=== PATIENT | male | born 1935 | race Caucasian/White ===

== ENCOUNTER → 2016-08-24 | Outpatient (CLI) | payer MEDICARE, OTHER ==
[~2016-08-24] MED LIST: CELE200C PO; CIAL10TA PO; FISH500C; GABA400C5 PO; LEVO150T7 PO; MULT-135 PO; OMEP20CA2; PERC10TA27 PO; SIMV10TA PO; ULTR50TA5 PO; VITA400C5; XARE20TA PO
== END ==
LOC: PLAB 08:28
PROVIDERS: ATTEND Family Medicine
DX: E55.9 Vitamin D deficiency, unspecified (principal); Z79.899 Other long term (current) drug therapy
CPT/HCPCS: 36415; 82306; 84402; 84403

== ENCOUNTER → 2016-09-23 | Outpatient (CLI) | payer MEDICARE, OTHER | LOC: PLAB 08:08 | PROVIDERS: ATTEND Family Medicine | DX: E55.9 Vitamin D deficiency, unspecified (principal); Z79.899 Other long term (current) drug therapy | CPT/HCPCS: 36415; 82306; 84402; 84403 ==

== ENCOUNTER → 2016-11-29 | Outpatient (CLI) | payer MEDICARE, OTHER ==
[2016-11-29 09:47] LABS: AUTOMATED NEUTROPHIL # 2.4 TH/MM3 (1.8-7.7); BASOPHIL % 0.6 % (0.0-2.0); EOSINOPHIL # 0.1 TH/MM3 (0-0.4); EOSINOPHIL % 1.5 % (0.0-4.0); HEMATOCRIT 39.1 % (39.0-51.0); HEMO FLAGS DIFF FINAL; LYMPH % 39.4 % (9.0-44.0); MEAN CELL VOLUME 97.7 FL (80.0-100.0); MEAN CORPUSCULAR HEMOGLOBIN 33.6 PG (27.0-34.0); MEAN CORPUSCULAR HGB CONC 34.4 % (32.0-36.0); MONO % 12.9 % (0.0-8.0); NEUT % 45.6 % (16.0-70.0); PLATELET COUNT 171 TH/MM3 (150-450); RED BLOOD COUNT 4.01 MIL/MM3 (4.50-5.90); RED CELL DISTRIBUTION WIDTH 14.7 % (11.6-17.2); WHITE BLOOD COUNT 5.2 TH/MM3 (4.0-11.0)
[2016-11-29 10:24] LABS: ALKALINE PHOSPHATASE 65 U/L (45-117); ALT (GPT) 21 U/L (12-78); ANION GAP 8 MEQ/L (5-15); AST (GOT) 16 U/L (15-37); BICARBONATE 27.7 MEQ/L (21.0-32.0); BLOOD UREA NITROGEN 30 MG/DL (7-18); CHLORIDE 106 MEQ/L (98-107); GLOMERULAR FILTRATION RATE 70 ML/MIN (>89); GLUCOSE,FASTING 101 MG/DL (74-99); SODIUM (NA) 142 MEQ/L (136-145); THYROXINE (T4) 4.8 MCG/DL (4.5-12.1); TOTAL BILIRUBIN ADULT 0.3 MG/DL (0.2-1.0)
== END ==
LOC: PLAB 07:51
PROVIDERS: ATTEND Family Medicine
DX: E55.9 Vitamin D deficiency, unspecified (principal); Z79.899 Other long term (current) drug therapy
CPT/HCPCS: 36415; 80053; 82306; 84402; 84403; 84436; 84443; 84480; 85025

== ENCOUNTER 2017-02-10 10:00 | Inpatient (IN) | payer MEDICARE, OTHER ==
[2017-02-10] VITALS (14 sets, daily range): BP systolic 89–123; BP diastolic 52–58; PULSE 47–65; RESP 16–34; TEMP 97.8–98.8; O2SAT 94–99
[~2017-02-10] VITALS: Ht 185.4 cm; Wt 118.0 kg
--- NOTE | 2017-02-10 10:12 | PD ---
HPI Chief Complaint: Syncope, R Hip Pain, Fall Time Seen by Provider: 10:08 Travel History International Travel<30 days: No Contact w/Intl Traveler<30days: No History of Present Illness HPI Patient is 77 years old. He arrives by EMS. The patient had a fall today. He fell backwards onto his right hip. He is a constant pain in that area. He is unable to flex the hip. The pain is worse with palpation. EMS notes that on scene his heart rate was between 35 and 55. Slow A. fib was observed on 12- lead EKG. Initial blood pressure was low approximately 80/50 and after 2 L normal saline increased 106/80. PFSH Past Medical History Arthritis: Yes Asthma: No Autoimmune Disease: No Blood Disorders: No Anxiety: No Depression: No Heart Rhythm Problems: Yes (ARRYTHMIA X1) Cancer: No Cardiovascular Problems: Yes (CARDIAC ARRTHYMIA, ENLARGED HEART, A-FIB) High Cholesterol: Yes Chemotherapy: No Chest Pain: Yes Congestive Heart Failure: Yes (ENLARGED HEART) COPD: No Cerebrovascular Accident: No Diabetes: No Diminished Hearing: No Endocrine: Yes (DRY) Gastrointestinal Disorders: Yes (GERD) GERD: No Glaucoma: No Genitourinary: No Headaches: Yes Hepatitis: No Hiatal Hernia: No Hypertension: No Immune Disorder: No Musculoskeletal: Yes (ARTHRITIS, HNP, FRANCHESCA KNEE AND SHOULDER REPLACEMENTS, L HIP REPLACEMENT) Neurologic: Yes Psychiatric: No Reproductive: Yes Respiratory: Yes (SLEEP APNEA/CPAP) Myocardial Infarction: No Radiation Therapy: No Seizures: No Sickle Cell Disease: No Sleep Apnea: Yes Thyroid Disease: Yes (HYPO) Ulcer: No Past Surgical History Abdominal Surgery: Yes (UMBILICAL HERNIA REPAIR 85) AICD: No Arteriovenous Shunt: No Cardiac Surgery: Yes (CARDIAC ABLATIONS X 2) Ear Surgery: No Endocrine Surgery: No Eye Surgery: No Genitourinary Surgery: No Gynecologic Surgery: No Insulin Pump: No Joint Replacement: Yes (FRAN[place] KNEES AND L HIP, FRANCHESCA SHOULDERS) Oral Surgery: No Pacemaker: No Thoracic Surgery: No Other Surgery: Yes Social History Alcohol Use: Yes (RUM 3X A WEEK) Tobacco Use: No Substance Use: No Allergies-Medications (Allergen,Severity, Reaction): Uncoded Allergies: PHENDIMETRAZINE (Allergy, Severe, ATRIAL FIBRILLATION, 02/24/16) Reported Meds & Prescriptions Reported Meds & Active Scripts Active Reported Percocet (Oxycodone-Acetaminophen) 10-325 mg Tab 1 Tab PO Q4H PRN Fish Oil ([place]-3 Fatty Acids) Unknown Strength Cap Unknown Dose Xarelto (Rivaroxaban) 20 Mg Tab 20 Mg PO DAILY Celebrex (Celecoxib) 200 Mg Cap 200 Mg PO BID Cialis (Tadalafil) 10 Mg Tab 10 Mg PO DAILY PRN Do not exceed 1 dose/day. Gabapentin 400 Mg Cap 400 Cap PO HS Levothyroxine (Levothyroxine Sodium) 150 Mcg Tab 150 Mcg PO DAILY Multi Vitamin (Multiple Vitamin) 1 Tab Tab 1 Tab PO DAILY Omeprazole 20 Mg Cap Simvastatin 10 Mg Tab 10 Mg PO DAILY Ultram (Tramadol HCl) 50 Mg Tab 50 Mg PO Q4H PRN E-400 (Vitamin E) 400 Unit Cap Review of Systems Except as stated in HPI: all other systems reviewed are Neg Physical Exam Narrative GENERAL: 81-year-old male, moderate distress secondary to weakness in her pain RECTAL: No mass. Guaiac negative mucous. SKIN: Warm and dry. HEAD: Atraumatic. Normocephalic. EYES: Pupils equal and round. No scleral icterus. No injection or drainage. ENT: No nasal bleeding or discharge. Mucous membranes pink and moist. NECK: Trachea midline. No JVD. CARDIOVASCULAR: Heart rate is irregular and approximately 50-60 bpm. RESPIRATORY: No accessory muscle use. Clear to auscultation. Breath sounds equal bilaterally. GASTROINTESTINAL: Abdomen soft, non-tender, nondistended. Hepatic and splenic margins not palpable. MUSCULOSKELETAL: There is pain with axial load about the right lower extremity. The patient cannot lift the right lower extremity off the bed. He can lift the left lower extremity off the bed. NEUROLOGICAL: Awake and alert. No obvious cranial nerve deficits. Motor grossly within normal limits. Five out of 5 muscle strength in the arms and legs. Normal speech. PSYCHIATRIC: Appropriate mood and affect; insight and judgment normal. Data Data Last Documented VS Vital Signs Date Time Temp Pulse Resp B/P Pulse Ox O2 Delivery O2 Flow Rate FiO2 02/10/17 12:03 58 18 107/58 97 Nasal Cannula 2 02/10/17 10:03 98.2 VS reviewed Orders Electrocardiogram (02/10/17 10:09) Basic Metabolic Panel (Bmp) (02/10/17 10:09) Complete Blood Count With Diff (02/10/17 10:09) Magnesium (Mg) (02/10/17 10:09) Ckmb (Isoenzyme) Profile (02/10/17 10:09) Troponin I (02/10/17 10:09) Act Partial Throm Time (Ptt) (02/10/17 10:09) Prothrombin Time / Inr (Pt) (02/10/17 10:09) Chest, Single Ap (02/10/17 10:09) Blood Glucose (02/10/17 10:09) Ecg Monitoring (02/10/17 10:09) Iv Access Insert/Monitor (02/10/17 10:09) Oximetry (02/10/17 10:09) Sodium Chloride 0.9% Flush (Ns Flush) (02/10/17 10:15) Orthostatic Vital Signs (02/10/17 10:09) Femur (Ap & Lat/2vws) (02/10/17 10:12) Hip, Uni(Ap&Lat) W Ap Pelvis (02/10/17 10:12) Blood Glucose (02/10/17 10:20) ^ Infusion (02/10/17 ) Dopamine Inj Premix (Dopamine Inj Premix (02/10/17 11:00) Terbutaline Inj (Brethine Inj) (02/10/17 10:45) Calcium Gluconate Inj (Calcium Gluconate (02/10/17 10:45) CKMB (02/10/17 10:15) CKMB% (02/10/17 10:15) Type And Screen (02/10/17 11:14) Blood Product Administration .UPON TRANSFUSION (02/10/17 11:14) Sodium Chlor 0.9% 250 Ml Inj (Ns 250 Ml (02/10/17 11:15) B-Type Natriuretic Peptide (02/10/17 11:58) Admit Order (Ed Use Only) (02/10/17 12:17) Labs Laboratory Tests Test 02/10/17 02/10/17 10:15 11:45 White Blood Count 8.2 TH/MM3 Red Blood Count 3.14 MIL/MM3 Hemoglobin 10.5 GM/DL Hematocrit 31.4 % Mean Corpuscular Volume 99.9 FL Mean Corpuscular Hemoglobin 33.5 PG Mean Corpuscular Hemoglobin 33.6 % Concent Red Cell Distribution Width 15.1 % Platelet Count 146 TH/MM3 Mean Platelet Volume 9.2 FL Neutrophils (%) (Auto) 70.6 % Lymphocytes (%) (Auto) 20.7 % Monocytes (%) (Auto) 7.7 % Eosinophils (%) (Auto) 0.6 % Basophils (%) (Auto) 0.4 % Neutrophils # (Auto) 5.8 TH/MM3 Lymphocytes # (Auto) 1.7 TH/MM3 Monocytes # (Auto) 0.6 TH/MM3 Eosinophils # (Auto) 0.0 TH/MM3 Basophils # (Auto) 0.0 TH/MM3 CBC Comment DIFF FINAL Differential Comment Prothrombin Time 13.0 SEC Prothromb Time International 1.2 RATIO Ratio Activated Partial 30.8 SEC Thromboplast Time Sodium Level 146 MEQ/L Potassium Level 3.9 MEQ/L Chloride Level 114 MEQ/L Carbon Dioxide Level 26.5 MEQ/L Anion Gap 6 MEQ/L Blood Urea Nitrogen 32 MG/DL Creatinine 1.14 MG/DL Estimat Glomerular Filtration 61 ML/MIN Rate Random Glucose 108 MG/DL Calcium Level 7.7 MG/DL Magnesium Level 1.8 MG/DL Total Creatine Kinase 223 U/L Creatine Kinase MB 3.8 NG/ML Troponin I 0.02 NG/ML B-Type Natriuretic Peptide 51 PG/ML Blood Type O POSITIVE Antibody Screen NEGATIVE MDM Medical Decision Making Medical Screen Exam Complete: Yes Emergency Medical Condition: Yes Medical Record Reviewed: Yes Differential Diagnosis Femur fracture, pelvis fracture, anemia, electrolyte imbalance, arrhythmia, myocardial infarction Narrative Course CBC & BMP Diagram 02/10/17 10:15 Tn 0.02 EKG: Atrial fibrillation, 65 beats per minute, stable TWI INR 1.2 The patient had a hypotension and bradycardia. Blood work reveals anemia with a 3 point drop from 10 weeks prior. The patient takes no rate control agent or antihypertensive. His stool guaiac was trace positive. He has been on dopamine sentences ER arrival. Case discussed with Dr Dorado. Critical Care Narrative Aggregate critical care time was 40 minutes. Time to perform other separately billable procedures was not included in the critical care time. My time did not include minutes spent treating any other patients simultaneously or on activities that did not directly contribute to the patient's treatment. The services I provided to this patient were to treat and/or prevent clinically significant deterioration that could result in: Syncope, cardiac arrest, multiorgan failure I provided critical care services requiring my management, as noted below: Chart data review, documentation time, medication orders and management, vital sign assessments/reviewing monitor data, ordering and reviewing lab tests, ordering and interpreting/reviewing x-rays and diagnostic studies, care of the patient and discussion of the patient with the admitting physicians. [facility] Point of Care Internal Pos. & Neg. Controls: Passed Fecal Specimen Occult Blood: Positive Diagnosis Primary Impression: Syncope and collapse Additional Impressions: Fracture of pubic ramus Qualified Code: S32.591A - Fracture of pubic ramus, right, closed, initial encounter Anemia Qualified Code: D64.9 - Anemia, unspecified type Hypotension Qualified Code: I95.9 - Hypotension, unspecified hypotension type Bradycardia Admitting Information Admitting Physician Requests: Admit Thong Coyne MD Feb 10, 2017 10:12
[2017-02-10] MEDS ORDERED: SODIUM CHLORIDE 0.9% FLUSH 10 ML FLUSH IVF PRN ×2 (10:15→18:15)
[2017-02-10 10:36] LABS: AUTOMATED NEUTROPHIL # 5.8 TH/MM3 (1.8-7.7); BASOPHIL % 0.4 % (0.0-2.0); EOSINOPHIL % 0.6 % (0.0-4.0); HEMATOCRIT 31.4 % (39.0-51.0); HEMO FLAGS DIFF FINAL; LYMPH % 20.7 % (9.0-44.0); LYMPHOCYTE # 1.7 TH/MM3 (1.0-4.8); MEAN CELL VOLUME 99.9 FL (80.0-100.0); MEAN CORPUSCULAR HEMOGLOBIN 33.5 PG (27.0-34.0); MEAN CORPUSCULAR HGB CONC 33.6 % (32.0-36.0); MONO % 7.7 % (0.0-8.0); NEUT % 70.6 % (16.0-70.0); PLATELET COUNT 146 TH/MM3 (150-450); RED BLOOD COUNT 3.14 MIL/MM3 (4.50-5.90); RED CELL DISTRIBUTION WIDTH 15.1 % (11.6-17.2); WHITE BLOOD COUNT 8.2 TH/MM3 (4.0-11.0)
[2017-02-10] MEDS ORDERED: TERBUTALINE INJ 1 MG/ML AMP SQ PRN (10:45)
[2017-02-10] MEDS ORDERED: CALCIUM GLUCONATE 10% 1 GM/10 ML VIAL IV PUSH ONE (10:45)
[2017-02-10 10:46] LABS: APTT (PATIENT) 30.8 SEC (24.3-30.1); INTERNATIONAL NORMALIZED RATIO 1.2 RATIO
[2017-02-10 10:51] LABS: ANION GAP 6 MEQ/L (5-15); BICARBONATE 26.5 MEQ/L (21.0-32.0); BLOOD UREA NITROGEN 32 MG/DL (7-18); CHLORIDE 114 MEQ/L (98-107); GLOMERULAR FILTRATION RATE 61 ML/MIN (>89); MAGNESIUM 1.8 MG/DL (1.5-2.5); POTASSIUM 3.9 MEQ/L (3.5-5.1); SODIUM (NA) 146 MEQ/L (136-145)
[2017-02-10 10:54] LABS: CREATINE KINASE 223 U/L (39-308)
[2017-02-10 11:07] LABS: CKMB 3.8 NG/ML (0.5-3.6)
[2017-02-10] MEDS ORDERED: SODIUM CHLOR 0.9% 250 ML INJ 250 ML IV ONE (11:15)
--- NOTE | 2017-02-10 11:54 | RADRPT ---
EXAM DATE/TIME: 02/10/2017 11:16 [facility] COMPARISON: No previous studies available for comparison. INDICATIONS : Fall. Right leg pain. MEDICAL HISTORY : None. SURGICAL HISTORY : Total knee replacement, right. ENCOUNTER: Initial ACUITY: 1 day PAIN SCORE: 8/10 LOCATION: Right lower leg FINDINGS: Degenerative changes are present about the hip. The femur is intact. Total arthroplasty is evident. CONCLUSION: Negative for fracture or dislocation. Follow up in 7-10 days is suggested if symptoms persist. Sushant Bernard MD FACR on February 10, 2017 at 11:51 Board Certified Radiologist. This report was verified electronically.
--- NOTE | 2017-02-10 11:56 | RADRPT ---
EXAM DATE/TIME: 02/10/2017 11:16 [facility] COMPARISON: No previous studies available for comparison. INDICATIONS : Fall. Right hip and pelvic pain. MEDICAL HISTORY : None. SURGICAL HISTORY : Left hip replacement. ENCOUNTER: Initial ACUITY: 1 day PAIN SCORE: 8/10 LOCATION: Right hip FINDINGS: There is fracture of the superior and inferior pubic ramus on the right. I don't see femoral neck fr acture. If there is strong clinical concern of such CT scan may be of benefit. CONCLUSION: Ramus fracture. I don't see hip fracture. Sushant Bernard MD FACR on February 10, 2017 at 11:52 Board Certified Radiologist. This report was verified electronically.
--- NOTE | 2017-02-10 11:58 | RADRPT ---
EXAM DATE/TIME: 02/10/2017 11:35 [facility] COMPARISON: No previous studies available for comparison. INDICATIONS : Syncope. MEDICAL HISTORY : Cardiovascular disease. SURGICAL HISTORY : Heart ablation x 2. ENCOUNTER: Initial ACUITY: 1 day PAIN SCORE: 0/10 LOCATION: Bilateral chest FINDINGS: Course interstitial changes are present in both lungs that could be mild failure. The heart is minim ally enlarged. There is no fracture. Bilateral shoulder arthroplasties are noted. CONCLUSION: Possible mild failure. Sushant Bernard MD FACR on February 10, 2017 at 11:55 Board Certified Radiologist. This report was verified electronically.
[2017-02-10] MEDS ORDERED: SODIUM CHLOR 0.9% 1000 ML INJ 1,000 ML IV SCH (13:19)
--- NOTE | 2017-02-10 13:29 | HHI.HP ---
[facility] Service Critical Care Medicine Primary Care Physician Unknown Admission Diagnosis Syncope, Hypotension, Bradycardia, Anemia Diagnosis: (1) Closed fracture of pubic ramus Diagnosis: Principal (2) Headache Diagnosis: Principal (3) [place] (hard of hearing) Diagnosis: Principal (4) Congestive heart failure of unknown etiology Diagnosis: Principal (5) Dyslipidemia Diagnosis: Principal (6) Atrial fibrillation Diagnosis: Principal (7) Bradycardia by electrocardiogram Diagnosis: Principal (8) Obstructive sleep apnea Diagnosis: Principal (9) Chronic anticoagulation Diagnosis: Principal (10) Erectile dysfunction Diagnosis: Principal (11) Hypothyroidism Diagnosis: Principal (12) Normocytic anemia Diagnosis: Principal (13) Thrombocytopenia Diagnosis: Principal (14) Hypotension Diagnosis: Principal (15) Osteoarthritis Diagnosis: Principal (16) History of hypertension Diagnosis: Principal (17) Neuropathy Diagnosis: Principal (18) Alcohol use Diagnosis: Principal (19) weight loss drug use Diagnosis: Principal (20) Hypernatremia Chief Complaint: Status post fall with right hip pain Travel History International Travel<30 Days: No Contact w/Intl Traveler <30 Da: No Traveled to Known Affected Are: No History of Present Illness This is an 81-year-old male. Date of admission 02/10/2017. Past medical history includes atrial fibrillation, Adipex use up until October 2 years , weight loss medications using 2011 resulting in atrial fibrillation, chronic diastolic heart failure, hard of hearing, hypertension, dyslipidemia, obstructive sleep apnea requiring CPAP, chronic Xarelto use, ED, hypothyroidism , GERD, osteoarthritis. As patient rest to [facility] via EMS status post fall. He states he's had 3 falls in the past 2 weeks. Denies prodrome of dizziness/vertigo, palpitations when these events. He says he has a gait imbalance disorder a child last onto his legs any fell backwards onto his right side. He is expressing constant pain in that area.. He is a constant pain in that area. He is unable to flex the hip. The pain is worse with palpation. At the scene, EMS notes that on scene his heart rate was between 35 and 55. Slow A. fib was observed on 12-lead EKG. Initial blood pressure was low approximately 80/50 and after 2 L normal saline increased 106/80. He was started on low-dose peripheral dopamine at 5 mics grams per kilogram per minute is currently hemodynamically stable. Cardiology was consulted for evaluation. Electrolytes are pending. Troponin 0.02. Review of Systems Constitutional: COMPLAINS OF: Weight gain, DENIES: Fever, Weight loss, Dizziness Endocrine: DENIES: Polydipsia, Polyuria Eyes: DENIES: Blurred vision, Double Vision Ears, nose, mouth, throat: COMPLAINS OF: Hearing loss, DENIES: Odynophagia Respiratory: COMPLAINS OF: Apneas, DENIES: Sputum production, Shortness of breath Cardiovascular: DENIES: Chest pain Gastrointestinal: DENIES: Abdominal pain Genitourinary: DENIES: Urgency, Dysuria Musculoskeletal: DENIES: Joint pain Integumentary: DENIES: Pruritus, Rash Hematologic/lymphatic: DENIES: Bruising Immunologic/allergic: DENIES: Eczema Neurologic: DENIES: Headache, Localized weakness Psychiatric: DENIES: Anxiety, Confusion Past Family Social History Allergies: Uncoded Allergies: PHENDIMETRAZINE (Allergy, Severe, ATRIAL FIBRILLATION, 02/24/16) Past Medical History History of headache Hard of hearing Congestive heart failure unknown etiology Hypertension Dyslipidemia Atrial fibrillation Bradycardia Obstructive sleep apnea on CPAP Chronic Xarelto use ED Hypothyroidism Gastroesophageal reflux disease Osteoarthritis Past Surgical History Left total hip replacement Bilateral rotator cuff repair Bilateral total knee replacement Umbilical hernia repair L3/4 and L5/S1 laminectomy Carpal tunnel release bilaterally Reported Medications Percocet (Oxycodone-Acetaminophen) 10-325 mg Tab 1 Tab PO Q4H PRN Fish Oil ([place]-3 Fatty Acids) Unknown Strength Cap Unknown Dose Xarelto (Rivaroxaban) 20 Mg Tab 20 Mg PO DAILY Celebrex (Celecoxib) 200 Mg Cap 200 Mg PO BID Cialis (Tadalafil) 10 Mg Tab 10 Mg PO DAILY PRN Do not exceed 1 dose/day. Gabapentin 400 Mg Cap 400 Cap PO HS Levothyroxine (Levothyroxine Sodium) 150 Mcg Tab 150 Mcg PO DAILY Multi Vitamin (Multiple Vitamin) 1 Tab Tab 1 Tab PO DAILY Omeprazole 20 Mg Cap Simvastatin 10 Mg Tab 10 Mg PO DAILY Ultram (Tramadol HCl) 50 Mg Tab 50 Mg PO Q4H PRN E-400 (Vitamin E) 400 Unit Cap Active Ordered Medications Reviewed in EMR Family History Mother CVA age 92. Follow age 63 [place] Social History Quit tobacco in 1986. States drinks alcohol 3 times a week. No IV drug use. Physical Exam Vital Signs Vital Signs Date Time Temp Pulse Resp B/P Pulse Ox O2 Delivery O2 Flow Rate FiO2 02/10/17 13:23 97 Nasal Cannula 2.00 02/10/17 12:03 58 18 107/58 97 Nasal Cannula 2 02/10/17 10:40 65 18 89/52 97 Nasal Cannula 2 02/10/17 10:20 Room Air 02/10/17 10:15 98 Room Air 02/10/17 10:03 98.2 64 16 94/52 99 Physical Exam GENERAL: 81-year-old male, resting in bed in no acute distress SKIN: Warm and dry. Well perfused no rash HEAD: Atraumatic. Normocephalic. EYES: Pupils equal and round around 3 mm bilaterally and reactive. No scleral icterus. No injection or drainage. ENT: No nasal bleeding or discharge. Mucous membranes pink and moist. NECK: Trachea midline. No JVD. CARDIOVASCULAR: Bradycardia, IR. S1, S2. No S4. Without murmur RESPIRATORY: No accessory muscle use. Clear to auscultation. Breath sounds equal bilaterally. GASTROINTESTINAL: Abdomen soft, non-tender, nondistended. Hypoactive bowel sounds are appreciated. MUSCULOSKELETAL: Extremities without significant peripheral edema. No obvious deformities. NEUROLOGICAL: Awake and alert. No obvious cranial nerve deficits. Motor grossly within normal limits. Five out of 5 muscle strength in the arms and legs. Normal speech. Hard of hearing Laboratory Laboratory Tests Test 02/10/17 02/10/17 10:15 11:45 White Blood Count 8.2 Red Blood Count 3.14 Hemoglobin 10.5 Hematocrit 31.4 Mean Corpuscular Volume 99.9 Mean Corpuscular Hemoglobin 33.5 Mean Corpuscular Hemoglobin 33.6 Concent Red Cell Distribution Width 15.1 Platelet Count 146 Mean Platelet Volume 9.2 Neutrophils (%) (Auto) 70.6 Lymphocytes (%) (Auto) 20.7 Monocytes (%) (Auto) 7.7 Eosinophils (%) (Auto) 0.6 Basophils (%) (Auto) 0.4 Neutrophils # (Auto) 5.8 Lymphocytes # (Auto) 1.7 Monocytes # (Auto) 0.6 Eosinophils # (Auto) 0.0 Basophils # (Auto) 0.0 CBC Comment DIFF FINAL Differential Comment Prothrombin Time 13.0 Prothromb Time International 1.2 Ratio Activated Partial 30.8 Thromboplast Time Sodium Level 146 Potassium Level 3.9 Chloride Level 114 Carbon Dioxide Level 26.5 Anion Gap 6 Blood Urea Nitrogen 32 Creatinine 1.14 Estimat Glomerular Filtration 61 Rate Random Glucose 108 Calcium Level 7.7 Magnesium Level 1.8 Total Creatine Kinase 223 Creatine Kinase MB 3.8 Troponin I 0.02 B-Type Natriuretic Peptide 51 Blood Type O POSITIVE Antibody Screen NEGATIVE Result Diagram: 02/10/17 1015 02/10/17 1015 Imaging Last Impressions Hip and Pelvis X-Ray 02/10/17 1012 Signed Impressions: Service Date/Time: Friday, February 10, 2017 11:16 - CONCLUSION: Ramus fracture. I don't see hip fracture. Sushant Bernard MD FACR Femur X-Ray 02/10/17 1012 Signed Impressions: Service Date/Time: Friday, February 10, 2017 11:16 - CONCLUSION: Negative for fracture or dislocation. Follow up in 7-10 days is suggested if symptoms persist. Sushant Bernard MD FACR Chest X-Ray 02/10/17 1009 Signed Impressions: Service Date/Time: Friday, February 10, 2017 11:35 - CONCLUSION: Possible mild failure. Sushant Bernard MD FACR Assessment and Plan Assessment and Plan Neuro/Psych: Headache Hard of hearing Maintain bilateral hearing aids Holding Celebrex 200 mg by mouth twice a day for arthritis right management Holding gabapentin 400 mg by mouth at night Holding Ultram 50 mg every 4 hours as needed for pain management Will check CT head secondary to Xarelto use CV: Symptomatically bradycardia Atrial fibrillation status post ablation 2 Congestive heart failure History of hypertension Dyslipidemia Status post 1 L normal saline bolus. Currently on dopamine at 5 mics grams per kilogram per minute Holding fish oil 1 g daily. Continue simvastatin 10 mg by mouth daily for dyslipidemia Dr. Lanza -cardiology consulted. Possibly pacemaker Resp: Obstructive sleep apnea on CPAP at night Nasal cannula to maintain saturations greater than equal to 92% Incentive spirometry while awake Recommended bringing him home CPAP. On 2 L bleeding into 10 CWP GI: Gastroesophageal reflux disease Currently nothing by mouth Currently in Protonix 40 mg IV daily. On Prilosec 20 mg by mouth daily at home Raquel-Colace twice a day for bowel regimen : ED [place] catheter to maintain accurate I's nose any critically ill patient Holding Cialis 10 mg by mouth at night as needed Endo: Hypothyroidism On Levoxyl 150 by mouth daily. Check TSH Sliding-scale insulin if indicated to maintain euglycemia Renal: Creatinine currently within normal limits Monitor for infection Accurate I's and O's Heme: Chronic Xarelto use Anemia Thrombocytopenia On Xarelto secondary to chronic atrial fibrillation. Currently on hold due to pubic ramus fracture/bleeding risk Hemoccult stool pending ID: Monitor for infection MSK: Right superior and inferior pubic greater than fracture PT evaluate and treat FEN: Hypernatremia Replace electrolytes as clinically indicated Access - Utilize peripheral IV. Central line if indicated Prophylaxis - GI - Protonix - DVT- SCD/holding Xarelto today in light of pelvic fracture/bleeding risk Critical Care: The total critical care time was 55 minutes. Time to perform other separately billable procedures was not included in the critical care time. Patient is critically ill requiring dopamine to maintain heart rate and blood pressure possibly will need temporary pacemaker placement. At risk for bleeding with ramus fracture close monitoring in ICu recommended Code Status Full code Discussed Condition With Dr. Ramos/ED physician. Patient. Care plan discussed all questions answered. Problem Qualifiers (1) Closed fracture of pubic ramus: Qualified Code: S32.591A - Closed fracture of pubic ramus, right, initial encounter (2) Headache: Qualified Code: R51 - Nonintractable headache, unspecified chronicity pattern, unspecified headache type (3) [place] (hard of hearing): Qualified Code: H91.93 - Bilateral hearing loss, unspecified hearing loss type (4) Atrial fibrillation: Qualified Code: I48.91 - Atrial fibrillation, unspecified type (5) Erectile dysfunction: Qualified Code: N52.9 - Erectile dysfunction, unspecified erectile dysfunction type (6) Hypothyroidism: Qualified Code: E03.9 - Hypothyroidism, unspecified type (7) Hypotension: Qualified Code: I95.9 - Hypotension, unspecified hypotension type (8) Osteoarthritis: Qualified Code: M19.90 - Osteoarthritis, unspecified osteoarthritis type, unspecified site Gregory Masterson MD Feb 10, 2017 13:29
[2017-02-10] MEDS ORDERED: MAGNESIUM HYDROXIDE SUSP 30 ML CUP PO PRN (13:30)
[2017-02-10] MEDS ORDERED: CHLORHEXIDINE GLUCONATE 2 % 1 PACK (2 CLOTHS) TOP PRN (13:30)
[2017-02-10] MEDS ORDERED: ACETAMINOPHEN 325 MG TAB PO PRN (13:30)
[2017-02-10] MEDS ORDERED: SENNOSIDES 8.6 MG TAB PO PRN (13:30)
[2017-02-10] MEDS ORDERED: SODIUM CHLORIDE 0.9% FLUSH 10 ML FLUSH IV FLUSH PRN (13:30)
[2017-02-10] MEDS ORDERED: LACTULOSE SYRUP 20 GM/30 ML CUP PO PRN (13:30)
[2017-02-10] MEDS ORDERED: BISACODYL 10 MG SUPP RECTAL PRN (13:30)
[2017-02-10] MEDS ORDERED: RESP: ALBUTEROL 2.5 MG/3 ML NEB (PRN) INH (13:30)
[2017-02-10] MEDS ORDERED: MISCELLANEOUS NURSING INFORMATION XX SCH (13:30)
[2017-02-10] MEDS ORDERED: MULTIVITAMIN INJ 10 ML, THIAMINE INJ 100 MG, FOLIC ACID INJ 1 MG in SODIUM CHLORID 0.9%... IV ONE (14:00)
--- NOTE | 2017-02-10 14:31 | EKG ---
Date Performed: 02/10/2017 Time Performed: 10:08:48 PTAGE: 81 years EKG: ATRIAL FIBRILLATION ABNORMAL RHYTHM ECG COMPARED TO PRIOR ELECTROCARDIOGRAM, PVCs are no lo nger present. PREVIOUS TRACING : 02/24/2016 11.41 DOCTOR: Taiwo Wilkins Interpretating Date/Time 02/10/2017 14:30:36
--- NOTE | 2017-02-10 15:00 | RADRPT ---
EXAM DATE/TIME: 02/10/2017 14:39 [facility] COMPARISON: No previous studies available for comparison. INDICATIONS : Fall today, patient on Xarelto. RADIATION DOSE: 43.99 CTDIvol (mGy) MEDICAL HISTORY : Cardiovascular disease. SURGICAL HISTORY : None. ENCOUNTER: Initial ACUITY: 1 day PAIN SCALE: 0/10 LOCATION: cranial TECHNIQUE: Multiple contiguous axial images were obtained of the head. Using automated exposure control and adj ustment of the mA and/or kV according to patient size, radiation dose was kept as low as reasonably a chievable to obtain optimal diagnostic quality images. DICOM format image data is available electro nically for review and comparison. FINDINGS: CEREBRUM: The ventricles are normal for age. No evidence of midline shift, mass lesion, hemorrhage or acute in farction. No extra-axial fluid collections are seen. POSTERIOR FOSSA: The cerebellum and brainstem are intact. The 4th ventricle is midline. The cerebellopontine angle i s unremarkable. EXTRACRANIAL: The visualized portion of the orbits is intact. SKULL: The calvaria is intact. No evidence of skull fracture. CONCLUSION: Normal examination. Juan A Barrera MD on February 10, 2017 at 14:56 Board Certified Radiologist. This report was verified electronically.
[2017-02-10] MEDS: SODIUM CHLOR 0.45% 1000 ML INJ 1,000 ML IV SCH (15:57)
[2017-02-10] MEDS: ONDANSETRON HCL 4 MG/2 ML VIAL IV PRN ×2 (17:43→21:02)
--- NOTE | 2017-02-10 18:12 | PD.PROCEDR ---
Central Line Procedure REASON FOR PROCEDURE Central venous access PROCEDURE PERFORMED Central line placement: Right IJ CVL CONSENT Informed consent for procedure was obtained. The risks and benefits of the procedure were discussed to include but limited to bleeding, clot formation, infection, and even . ANESTHESIA Local injection of 1% Lidocaine DESCRIPTION OF THE PROCEDURE The patient was placed in supine, mild Trendelenburg position. The area was exposed and cleansed with ChloraPrep, times two. Large sterile drape was used to cover the patient, with the site exposed, under sterile conditions including cap, face mask, sterile gown, and sterile gloves. On single attempt, the introducer needle was inserted with negative pressure in syringe and venous flash was obtained. The guide wire was then advanced without any restriction and the needle was removed. The dilator was used without any complications. Using Seldinger technique the triple-lumen catheter was advanced over the guide wire to a depth of 16 centimeters. The guide wire was removed. All ports were aspirated with dark venous blood return and flushed easily with sterile saline. All ports were capped. Antibiotic disc was placed around central line at puncture site. The central line was secured to the skin with two interrupted 2.0 silk sutures. The area was bandaged with sterile see-through central line bandage. RADIOLOGICAL DATA Ultrasound guidance was used to locate right internal jugular vein. Doppler/ color flow was used to confirm venous flow. COMPLICATIONS: No apparent complications ESTIMATED BLOOD LOSS: Less than 1 cc. Gregory Masterson MD Feb 10, 2017 18:12
--- NOTE | 2017-02-10 19:06 | RADRPT ---
EXAM DATE/TIME: 02/10/2017 18:26 [place] COMPARISON: CHEST SINGLE AP, February 10, 2017, 11:35. INDICATIONS : Central line placement. MEDICAL HISTORY : None. SURGICAL HISTORY : None. ENCOUNTER: Initial ACUITY: 1 day PAIN SCORE: 0/10 LOCATION: Bilateral chest FINDINGS: A single view of the chest demonstrates the lungs to be symmetrically aerated without evidence of mas s, infiltrate or effusion. The cardiomediastinal contours are unremarkable. Osseous structures are intact. There has been interval placement of a right internal jugular central venous line with the ti p projected over the superior vena cava. There is no evidence of a pneumothorax. The patient is statu s post right shoulder arthroplasty. CONCLUSION: 1. Interval placement of right internal jugular central venous line with no evidence of pneumothorax. 2. No acute cardiopulmonary disease. Tae Selby MD on February 10, 2017 at 19:03 Board Certified Radiologist. This report was verified electronically.
--- NOTE | 2017-02-10 19:15 | PD.CONS ---
HPI Service Cardiology Physicians Consult Requested By Hospitalist Reason for Consult Syncope/Bradycardia Primary Care Physician Unknown History of Present Illness Mr. Hernandez is a pleasant 81 year old known to Dr. Lanza. He has a history of atrial flutter S/P ablation 2013 anticoagulated with xarelto, mild mitral regurgitation, mild tricuspid insufficiency and hyperlipidemia. He presented to the ED today status post fall. He reports that he has been dizzy and fallen four times over the last two weeks. Today he reports he was taking his granddaughter to school, became dizzy, lost his balance and fell. He had immediate pain in his right pelvis. EMS was called. Upon EMS arrival he was found to be both hypotensive 80/50 and bradycardic with heartrate 35-50. He was transported here for further evaluation. He was placed on dopamine 5mcgs/kg/min to assist with HR and hypotension. He is currently in slow atrial fibrillation with rate in the 50s, SBP 120's. He has been medicated for pain and is a little groggy and having difficulty recalling events. Review of Systems Consitutional: DENIES: Fatigue, Fever, Chills Eyes: DENIES: Change in vision HEENT: COMPLAINS OF: Lightheadedness, DENIES: Change in hearing Respiratory: DENIES: Cough, Shortness of breath, Sputum production Cardiovascular: DENIES: See HPI, Chest pain, Palpitations, Syncope, Tachycardia Gastrointestinal: DENIES: Nausea, Vomiting, Bloody stools Genitourinary: DENIES: Difficulty voiding Integumentary: DENIES: Rash Neurologic: COMPLAINS OF: Poor Balance, DENIES: Tingling or numbness, Memory problems, Stroke symptoms Musculoskeletal: COMPLAINS OF: Joint pain, DENIES: Muscle pain, Limited range of motion, Back pain Psychiatric: DENIES: Anxiety, Depression Hematologic: COMPLAINS OF: Bruising tendencies Endocrine: DENIES: Weight gain, Weight loss, Thyroid disease Past Family Social History Allergies: Uncoded Allergies: PHENDIMETRAZINE (Allergy, Severe, ATRIAL FIBRILLATION, 02/24/16) Past Medical History Atrial flutter Hyperlipidemia Mitral regurgitation Tricuspid insufficiency Past Surgical History Atrial flutter ablation L TKA Reported Medications Reported Meds & Active Scripts Active Reported Percocet (Oxycodone-Acetaminophen) 10-325 mg Tab 1 Tab PO Q4H PRN Fish Oil ([place]-3 Fatty Acids) Unknown Strength Cap Unknown Dose Xarelto (Rivaroxaban) 20 Mg Tab 20 Mg PO DAILY Celebrex (Celecoxib) 200 Mg Cap 200 Mg PO BID Cialis (Tadalafil) 10 Mg Tab 10 Mg PO DAILY PRN Do not exceed 1 dose/day. Gabapentin 400 Mg Cap 400 Cap PO HS Levothyroxine (Levothyroxine Sodium) 150 Mcg Tab 150 Mcg PO DAILY Multi Vitamin (Multiple Vitamin) 1 Tab Tab 1 Tab PO DAILY Omeprazole 20 Mg Cap Simvastatin 10 Mg Tab 10 Mg PO DAILY Ultram (Tramadol HCl) 50 Mg Tab 50 Mg PO Q4H PRN E-400 (Vitamin E) 400 Unit Cap Active Ordered Medications Current Medications Medications (Trade) Dose Ordered Sig/Karan Route Start Time Stop Time Status Last Admin (DOPamine INJ PREMIX) 500 ml @ 0 mls/hr TITRATE IV 02/10/17 11:00 Terbutaline Sulfate 1 mg 1 mg UNSCH PRN SQ 02/10/17 10:45 (NS 250 ml Inj) 250 ml @ 15 mls/hr ONCE ONCE IV 02/10/17 11:15 02/11/17 03:54 (NS Flush) 2 ml UNSCH PRN IV FLUSH 02/10/17 13:30 (NS Flush) 2 ml BID IV FLUSH 02/10/17 21:00 (Tylenol) 650 mg Q6H PRN PO 02/10/17 13:30 ([place] 5-325 Mg) 1 tab Q4H PRN PO 02/10/17 13:30 (Morphine Inj) 2 mg Q2H PRN IV 02/10/17 13:30 (Protonix Inj) 40 mg DAILY IV 02/11/17 09:00 (Zofran Inj) 4 mg Q6H PRN IV 02/10/17 13:30 02/10/17 17:43 Miscellaneous Information 1 [id number] XX 02/10/17 13:30 (Chlorhexidine 2% Cloth) 3 pack Taper DAILY@04 TOP 02/11/17 04:00 02/07/18 03:59 (Chlorhexidine 2% Cloth) 3 pack UNSCH PRN TOP 02/10/17 13:30 (Rauqel-Colace) 1 tab BID PO 02/10/17 21:00 (Milk Of Magnesia Liq) 30 ml Q12H PRN PO 02/10/17 13:30 (Senokot) 17.2 mg Q12H PRN PO 02/10/17 13:30 (Dulcolax Supp) 10 mg DAILY PRN RECTAL 02/10/17 13:30 (Lactulose Liq) 30 ml DAILY PRN PO 02/10/17 13:30 (Synthroid) 150 mcg DAILY@06 PO 02/11/17 06:00 (Theragran) 1 tab DAILY PO 02/11/17 09:00 Pravastatin Sodium 20 mg 20 mg DAILY PO 02/11/17 09:00 Multivitamins 10 ml/Thiamine HCl 100 mg/Folic Acid 1 mg/Sodium Chloride 511.2 ml @ 125 mls/hr DAILY IV 02/11/17 09:00 (1/2 NS 1000 ml Inj) 1,000 ml @ 84 mls/hr [id number] IV 02/10/17 15:00 02/10/17 15:57 (NS Flush) DAILY IVF 02/11/17 09:00 Sodium Chloride UNSCH PRN IVF 02/10/17 18:15 (Magnesium Sulfate 1 Gm Premix) 100 ml @ 100 mls/hr Q1H IV 02/10/17 19:00 02/10/17 20:59 Family History Mother CVA Social History Occasional ETOH. Physical Exam Vital Signs Vital Signs Date Time Temp Pulse Resp B/P Pulse Ox O2 Delivery O2 Flow Rate FiO2 02/10/17 18:00 98.8 47 16 117/56 98 02/10/17 17:04 52 16 123/55 99 02/10/17 16:00 98.0 59 16 114/58 98 Room Air 02/10/17 15:00 55 18 112/58 98 Room Air 02/10/17 14:00 60 16 99/54 98 Room Air 02/10/17 13:23 97 Nasal Cannula 2.00 02/10/17 13:00 64 20 98/53 97 Room Air 02/10/17 12:03 58 18 107/58 97 Nasal Cannula 2 02/10/17 10:40 65 18 89/52 97 Nasal Cannula 2 02/10/17 10:20 Room Air 02/10/17 10:15 98 Room Air 02/10/17 10:03 98.2 64 16 94/52 99 Physical Exam GENERAL: Sleepy, no distress. SKIN: Warm and dry. HEAD: Atraumatic. Normocephalic. EYES: Pupils equal and round. No scleral icterus. ENT: No nasal bleeding or discharge. Mucous membranes pink and moist. NECK: Trachea midline. No JVD. CARDIOVASCULAR: Irregularly irregular rhythm. Bradycardia. RESPIRATORY: No accessory muscle use. Clear to auscultation. Breath sounds equal bilaterally. GASTROINTESTINAL: Abdomen soft, non-tender, nondistended. MUSCULOSKELETAL: Extremities without clubbing, cyanosis, or edema. NEUROLOGICAL: Awake and drowsy. No obvious cranial nerve deficits. Motor grossly within normal limits. Normal speech. PSYCHIATRIC: Appropriate mood and affect; insight and judgment normal. Laboratory Laboratory Tests Test 02/10/17 02/10/17 02/10/17 10:15 11:45 14:00 White Blood Count 8.2 Red Blood Count 3.14 Hemoglobin 10.5 Hematocrit 31.4 Mean Corpuscular Volume 99.9 Mean Corpuscular Hemoglobin 33.5 Mean Corpuscular Hemoglobin 33.6 Concent Red Cell Distribution Width 15.1 Platelet Count 146 Mean Platelet Volume 9.2 Neutrophils (%) (Auto) 70.6 Lymphocytes (%) (Auto) 20.7 Monocytes (%) (Auto) 7.7 Eosinophils (%) (Auto) 0.6 Basophils (%) (Auto) 0.4 Neutrophils # (Auto) 5.8 Lymphocytes # (Auto) 1.7 Monocytes # (Auto) 0.6 Eosinophils # (Auto) 0.0 Basophils # (Auto) 0.0 CBC Comment DIFF FINAL Differential Comment Prothrombin Time 13.0 Prothromb Time International 1.2 Ratio Activated Partial 30.8 Thromboplast Time Sodium Level 146 Potassium Level 3.9 Chloride Level 114 Carbon Dioxide Level 26.5 Anion Gap 6 Blood Urea Nitrogen 32 Creatinine 1.14 Estimat Glomerular Filtration 61 Rate Random Glucose 108 Calcium Level 7.7 Magnesium Level 1.8 Total Creatine Kinase 223 Creatine Kinase MB 3.8 Troponin I 0.02 B-Type Natriuretic Peptide 51 Ethyl Alcohol Level LESS THAN 3 Blood Type O POSITIVE Antibody Screen NEGATIVE Lactic Acid Level 1.5 Result Diagram: 02/10/17 1015 02/10/17 1015 Imaging Last 24 hours Impressions Hip and Pelvis X-Ray 02/10/17 1012 Signed Impressions: Service Date/Time: Friday, February 10, 2017 11:16 - CONCLUSION: Ramus fracture. I don't see hip fracture. Sushant Bernard MD FACR Femur X-Ray 02/10/17 1012 Signed Impressions: Service Date/Time: Friday, February 10, 2017 11:16 - CONCLUSION: Negative for fracture or dislocation. Follow up in 7-10 days is suggested if symptoms persist. Sushant Bernard MD FACR Chest X-Ray 02/10/17 1009 Signed Impressions: Service Date/Time: Friday, February 10, 2017 11:35 - CONCLUSION: Possible mild failure. Sushant Bernard MD FACR Head CT 02/10/17 0000 Signed Impressions: Service Date/Time: Friday, February 10, 2017 14:39 - CONCLUSION: Normal examination. Juan A Barrera MD Assessment and Plan Assessment and Plan 1. Sick sinus syndrome 2. Hypotension 3. Anemia Agree with dopamine for hypotension/bradycardia. Hydrate. Monitor for arrhythmias. Hold beta blockers and antihypertensives. He may need a pacemaker. Dr. Hughes to cover the weekend. Code Status Full Discussed Condition With Beth Ahumada [facility] Feb 10, 2017 19:15
--- NOTE | 2017-02-10 20:15 | EKG ---
Date Performed: 02/10/2017 Time Performed: 18:18:34 PTAGE: 81 years EKG: Probable Sinus rhythm with 2:1 second degree AV block Low QRS voltages in limb leads Borderline ECG In comparison,no signi ficant change. PREVIOUS TRACING : 02/10/2017 18.17 DOCTOR: Taiwo Wilkins Interpretating Date/Time 02/10/2017 20:14:55
--- NOTE | 2017-02-10 20:17 | EKG ---
Date Performed: 02/10/2017 Time Performed: 18:17:32 PTAGE: 81 years EKG: Sinus rhythm with Mobitz 2 second degree AV block. Low QRS voltages in limb leads Abnormal ECG In comparison, sec ond degree AV block is present. PREVIOUS TRACING : 02/10/2017 10.08 DOCTOR: Taiwo Wilkins Interpretating Date/Time 02/10/2017 20:17:12
[2017-02-10] MEDS: DOCUSATE SODIUM 50 MG/SENNA 8.6 MG TAB PO SCH (21:00)
[2017-02-10] MEDS: MAGNESIUM SULFATE 1 GM PREMIX 100 ML IV SCH (21:02)
[2017-02-10] MEDS: SODIUM CHLORIDE 0.9% FLUSH 10 ML FLUSH IV FLUSH SCH (21:03)
[2017-02-11] VITALS (14 sets, daily range): BP systolic 102–133; BP diastolic 56–76; PULSE 51–91; RESP 19–29; TEMP 97.6–97.8; O2SAT 92–98
[2017-02-11] MEDS: ACETAMINOPHEN/HYDROcodone 325 MG/5 MG TAB PO PRN (00:54)
[2017-02-11] MEDS: SODIUM CHLOR 0.45% 1000 ML INJ 1,000 ML IV SCH ×2 (00:57→09:21)
[2017-02-11] MEDS ORDERED: MAGNESIUM SULFATE 1 GM PREMIX 100 ML ONE (01:02)
[2017-02-11] MEDS: MAGNESIUM SULFATE 1 GM PREMIX 100 ML IV SCH (01:04)
[2017-02-11] MEDS: DOPamine INJ PREMIX 500 ML IV SCH ×2 (02:00→16:53)
[2017-02-11] MEDS: CHLORHEXIDINE GLUCONATE 2 % 1 PACK (2 CLOTHS) TOP SCH (02:00)
[2017-02-11 05:05] LABS: BLOOD, URINE TRACE (NEG); GLUCOSE,URINE NEG (NEG); KETONE, URINE NEG (NEG); NITRITE,URINE NEG (NEG); URINE COLOR YELLOW (YELLW/STRAW)
[2017-02-11 05:06] LABS: COMMENT (UR) CULT NOT INDICATED; CULTURE IF INDICATED CULT NOT INDICATED
[2017-02-11] MEDS ORDERED: LEVOTHYROXINE SODIUM 150 MCG TAB PO SCH (06:00)
[2017-02-11 07:01] LABS: ANION GAP 8 MEQ/L (5-15); AST (GOT) 18 U/L (15-37); BICARBONATE 24.7 MEQ/L (21.0-32.0); BLOOD UREA NITROGEN 27 MG/DL (7-18); CHLORIDE 108 MEQ/L (98-107); GLOMERULAR FILTRATION RATE 78 ML/MIN (>89); MAGNESIUM 2.2 MG/DL (1.5-2.5); POTASSIUM 4.2 MEQ/L (3.5-5.1); SODIUM (NA) 141 MEQ/L (136-145)
[2017-02-11 07:05] LABS: AUTOMATED NEUTROPHIL # 7.7 TH/MM3 (1.8-7.7); BASOPHIL % 0.2 % (0.0-2.0); EOSINOPHIL % 0.2 % (0.0-4.0); HEMATOCRIT 34.7 % (39.0-51.0); HEMO FLAGS DIFF FINAL; LYMPH % 9.2 % (9.0-44.0); LYMPHOCYTE # 0.9 TH/MM3 (1.0-4.8); MEAN CELL VOLUME 98.8 FL (80.0-100.0); MEAN CORPUSCULAR HEMOGLOBIN 33.5 PG (27.0-34.0); MEAN CORPUSCULAR HGB CONC 33.9 % (32.0-36.0); MONO % 8.3 % (0.0-8.0); NEUT % 82.1 % (16.0-70.0); PLATELET COUNT 159 TH/MM3 (150-450); RED BLOOD COUNT 3.51 MIL/MM3 (4.50-5.90); RED CELL DISTRIBUTION WIDTH 14.9 % (11.6-17.2); WHITE BLOOD COUNT 9.4 TH/MM3 (4.0-11.0)
[2017-02-11 07:06] LABS: ALKALINE PHOSPHATASE 50 U/L (45-117); ALT (GPT) 18 U/L (12-78); TOTAL BILIRUBIN ADULT 0.9 MG/DL (0.2-1.0)
[2017-02-11 07:09] LABS: APTT (PATIENT) 31.5 SEC (24.3-30.1); INTERNATIONAL NORMALIZED RATIO 1.1 RATIO
--- NOTE | 2017-02-11 09:06 | HHI.CCPN ---
Subjective Remarks/Hospital Course This is an 81-year-old male. Date of admission 02/10/2017. Past medical history includes atrial fibrillation, Adipex use up until October 2 years , weight loss medications using 2011 resulting in atrial fibrillation, chronic diastolic heart failure, hard of hearing, hypertension, dyslipidemia, obstructive sleep apnea requiring CPAP, chronic Xarelto use, ED, hypothyroidism , GERD, osteoarthritis. As patient rest to [place] via EMS status post fall. He states he's had 3 falls in the past 2 weeks. Denies prodrome of dizziness/vertigo, palpitations when these events. He says he has a gait imbalance disorder a child last onto his legs any fell backwards onto his right side. He is expressing constant pain in that area.. He is a constant pain in that area. He is unable to flex the hip. The pain is worse with palpation. At the scene, EMS notes that on scene his heart rate was between 35 and 55. Slow A. fib was observed on 12-lead EKG. Initial blood pressure was low approximately 80/50 and after 2 L normal saline increased 106/80. He was started on low-dose peripheral dopamine at 5 mics grams per kilogram per minute is currently hemodynamically stable. Cardiology was consulted for evaluation. Electrolytes are pending. Troponin 0.02. Subjective 02/11: Patient in reviewing rhythm strips has gone in many different rhythms overnight including type I heart block, Mobitz type I, type II with 2-1 conduction and what appears to be complete heart block at times. Currently in Mobitz type I. Denies chest pain. Troponin negative. Electrolytes within normal limits. TSH 0.04. Levoxyl as been held currently. Currently on dopamine at 10 mcg/kg/m. Dr. Rader evaluated the patient yesterday. At that time thought to be sick sinus syndrome situation with no bradycardia associated H fibrillation requiring dopamine. Complaining of pain at right pelvic region. A fall. Objective Vital Signs Date Time Temp Pulse Resp B/P Pulse Ox O2 Delivery O2 Flow Rate FiO2 02/11/17 07:51 94 Nasal Cannula 2.00 02/11/17 06:00 91 02/11/17 04:00 97.6 19 117/56 Result Diagram: 02/11/17 0620 02/11/17 0620 Imaging Last Impressions Chest X-Ray 02/10/17 7408 Signed Impressions: Service Date/Time: Friday, February 10, 2017 18:26 - CONCLUSION: 1. Interval placement of right internal jugular central venous line with no evidence of pneumothorax. 2. No acute cardiopulmonary disease. Tae Selby MD Hip and Pelvis X-Ray 02/10/17 1012 Signed Impressions: Service Date/Time: Friday, February 10, 2017 11:16 - CONCLUSION: Ramus fracture. I don't see hip fracture. Sushant Bernard MD FACR Femur X-Ray 02/10/17 1012 Signed Impressions: Service Date/Time: Friday, February 10, 2017 11:16 - CONCLUSION: Negative for fracture or dislocation. Follow up in 7-10 days is suggested if symptoms persist. Sushant Bernard MD FACR Head CT 02/10/17 0000 Signed Impressions: Service Date/Time: Friday, February 10, 2017 14:39 - CONCLUSION: Normal examination. Juan A Barrera MD Objective Remarks GENERAL: 81-year-old male, resting in bed in no acute distress SKIN: Warm and dry. Well perfused no rash HEAD: Atraumatic. Normocephalic. EYES: Pupils equal and round around 3 mm bilaterally and reactive. No scleral icterus. No injection or drainage. ENT: No nasal bleeding or discharge. Mucous membranes pink and moist. NECK: Trachea midline. No JVD. CARDIOVASCULAR: Bradycardia, IR. S1, S2. No S4. Without murmur RESPIRATORY: No accessory muscle use. Clear to auscultation. Breath sounds equal bilaterally. GASTROINTESTINAL: Abdomen soft, non-tender, nondistended. Hypoactive bowel sounds are appreciated. MUSCULOSKELETAL: Extremities without significant peripheral edema. No obvious deformities. NEUROLOGICAL: Awake and alert. No obvious cranial nerve deficits. Motor grossly within normal limits. Five out of 5 muscle strength in the arms and legs. Normal speech. Hard of hearing A/P Assessment and Plan Neuro/Psych: Headache Hard of hearing Maintain bilateral hearing aids Holding Celebrex 200 mg by mouth twice a day for arthritis right management Holding gabapentin 400 mg by mouth at night for neuropathy Holding Ultram 50 mg every 4 hours as needed for pain management CT head 02/10 revealed no acute intracranial findings CV: Dysrhythmia -SSS/Mobitz type I with 2:1 conduction at times Possible Mobitz type 2 yesterday. History of Atrial fibrillation status post ablation 2 Congestive heart failure unknown etiology History of hypertension Dyslipidemia Status post 1 L normal saline bolus in ED.. Currently on dopamine at 10 mics grams per kilogram per minute Holding fish oil 1 g daily. Continue simvastatin 10 mg by mouth daily for dyslipidemia Dr. Lanza -cardiology consulted. Dr. Rader evaluated the patient yesterday. Recommended dopamine. Likely need for pacemaker. SHERITA 2012 revealed normal systolic function. No regional wall motion abnormality 's. No valvular abnormality's dysfunction. Resp: Obstructive sleep apnea on CPAP at night Nasal cannula to maintain saturations greater than equal to 92% Incentive spirometry while awake Recommended bringing him home CPAP. On 2 L bleeding into 10 CWP GI: Gastroesophageal reflux disease Currently nothing by mouth Currently in Protonix 40 mg IV daily. On Prilosec 20 mg by mouth daily at home Raquel-Colace twice a day for bowel regimen : ED [place] catheter to maintain accurate I's nose any critically ill patient Holding Cialis 10 mg by mouth at night as needed Endo: Hypothyroidism - now with iatrogenic hyperthyroidism On Levoxyl 150 by mouth daily.. This will be held Check TSH - 0.04 Sliding-scale insulin if indicated to maintain euglycemia Renal: Creatinine currently within normal limits Monitor for infection Accurate I's and O's Heme: Chronic Xarelto use Anemia Thrombocytopenia On Xarelto secondary to chronic atrial fibrillation. Currently on hold due to pubic ramus fracture/bleeding risk Hemoccult stool pending ID: Monitor for infection MSK: Right superior and inferior pubic ramus fracture PT evaluate and treat Orthopedic consultation FEN: Hypernatremia Replace electrolytes as clinically indicated Access - Utilize peripheral IV. Central line if indicated Prophylaxis - GI - Protonix - DVT- SCD/holding Xarelto today in light of pubic ramus fracture/bleeding risk Critical Care: The total critical care time was 35 minutes. Time to perform other separately billable procedures was not included in the critical care time. Patient is critically ill requiring dopamine to maintain heart rate and blood pressure possibly will need temporary pacemaker placement. At risk for bleeding with ramus fracture close monitoring in ICU recommended Gregory Masterson MD Feb 11, 2017 09:06
[2017-02-11] MEDS: MULTIVITAMIN INJ 10 ML, THIAMINE INJ 100 MG, FOLIC ACID INJ 1 MG in SODIUM CHLORID 0.9%... IV SCH (09:18)
[2017-02-11] MEDS: PANTOPRAZOLE SODIUM 40 MG VIAL IV SCH (09:19)
[2017-02-11] MEDS: DOCUSATE SODIUM 50 MG/SENNA 8.6 MG TAB PO SCH ×2 (09:19→20:17)
[2017-02-11] MEDS: MULTIVITAMIN TAB PO SCH (09:20)
[2017-02-11] MEDS: PRAVASTATIN SOD 20 MG TAB PO SCH (09:20)
[2017-02-11] MEDS: SODIUM CHLORIDE 0.9% FLUSH 10 ML FLUSH IV FLUSH SCH (09:20)
[2017-02-11] MEDS: SODIUM CHLORIDE 0.9% FLUSH 10 ML FLUSH IVF SCH (09:21)
[2017-02-11 09:53] LABS: FREE T3 2.08 PG/ML (2.18-3.98); FREE T4 0.9 NG/DL (0.76-1.46)
--- NOTE | 2017-02-11 11:46 | EKG ---
Date Performed: 02/11/2017 Time Performed: 09:25:47 PTAGE: 81 years EKG: Baseline artifact is present. Unclear underlying rhythm -would repeat EKG ABNORMAL ECG PREVIOUS TRACING : 02/10/2017 18.18 DOCTOR: Taiwo Wilkins Interpretating Date/Time 02/11/2017 11:45:42
--- NOTE | 2017-02-11 12:01 | PD.CARD.PN ---
Objective Vital Signs / I&O Vital Signs Date Time Temp Pulse Resp B/P Pulse Ox O2 Delivery O2 Flow Rate FiO2 02/11/17 10:53 20 02/11/17 10:00 58 02/11/17 08:00 97.8 64 22 112/57 93 02/11/17 08:00 64 02/11/17 07:51 94 Nasal Cannula 2.00 02/11/17 06:00 91 02/11/17 04:00 97.6 61 19 117/56 93 02/11/17 04:00 61 02/11/17 02:00 51 02/11/17 00:00 55 02/11/17 00:00 97.8 56 22 117/56 95 02/10/17 22:00 57 02/10/17 20:25 95 Nasal Cannula 2.00 02/10/17 20:00 50 02/10/17 20:00 97.8 50 34 117/56 94 02/10/17 18:00 98.8 47 16 117/56 98 02/10/17 17:04 52 16 123/55 99 02/10/17 16:00 98.0 59 16 114/58 98 Room Air 02/10/17 15:00 55 18 112/58 98 Room Air 02/10/17 14:00 60 16 99/54 98 Room Air 02/10/17 13:23 97 Nasal Cannula 2.00 02/10/17 13:00 64 20 98/53 97 Room Air 02/10/17 12:03 58 18 107/58 97 Nasal Cannula 2 I/O 02/10/17 02/10/17 02/10/17 02/11/17 02/11/17 02/11/17 07:00 15:00 23:00 07:00 15:00 23:00 Intake Total 1464 ml Output Total 700 ml Balance 764 ml Intake IV Total 1464 ml Output Urine Total 700 ml Laboratory Laboratory Tests Test 02/10/17 02/10/17 02/10/17 02/11/17 14:00 18:30 19:30 01:30 Lactic Acid Level 1.5 mmol/L Nasal Screen MRSA (PCR) MRSA NOT DETECTED Phosphorus Level 3.0 MG/DL Troponin I 0.02 NG/ML 0.02 NG/ML Thyroid Stimulating Hormone 0.045 uIU/ML 3rd Gen Test 02/11/17 02/11/17 02:20 06:20 Urine Color YELLOW Urine Turbidity CLEAR Urine pH 5.0 Urine Specific [place] 1.021 Urine Protein TRACE mg/dL Urine Glucose (UA) NEG mg/dL Urine Ketones NEG mg/dL Urine Occult Blood TRACE Urine Nitrite NEG Urine Bilirubin NEG Urine Urobilinogen LESS THAN 2.0 MG/DL Urine Leukocyte Esterase NEG Urine RBC 1 /hpf Urine WBC 5 /hpf Microscopic Urinalysis Comment CULT NOT INDICATED White Blood Count 9.4 TH/MM3 Red Blood Count 3.51 MIL/MM3 Hemoglobin 11.8 GM/DL Hematocrit 34.7 % Mean Corpuscular Volume 98.8 FL Mean Corpuscular Hemoglobin 33.5 PG Mean Corpuscular Hemoglobin 33.9 % Concent Red Cell Distribution Width 14.9 % Platelet Count 159 TH/MM3 Mean Platelet Volume 9.4 FL Neutrophils (%) (Auto) 82.1 % Lymphocytes (%) (Auto) 9.2 % Monocytes (%) (Auto) 8.3 % Eosinophils (%) (Auto) 0.2 % Basophils (%) (Auto) 0.2 % Neutrophils # (Auto) 7.7 TH/MM3 Lymphocytes # (Auto) 0.9 TH/MM3 Monocytes # (Auto) 0.8 TH/MM3 Eosinophils # (Auto) 0.0 TH/MM3 Basophils # (Auto) 0.0 TH/MM3 CBC Comment DIFF FINAL Differential Comment Prothrombin Time 12.0 SEC Prothromb Time International 1.1 RATIO Ratio Activated Partial 31.5 SEC Thromboplast Time Sodium Level 141 MEQ/L Potassium Level 4.2 MEQ/L Chloride Level 108 MEQ/L Carbon Dioxide Level 24.7 MEQ/L Anion Gap 8 MEQ/L Blood Urea Nitrogen 27 MG/DL Creatinine 0.93 MG/DL Estimat Glomerular Filtration 78 ML/MIN Rate Random Glucose 132 MG/DL Lactic Acid Level 1.3 mmol/L Calcium Level 8.5 MG/DL Phosphorus Level 3.0 MG/DL Magnesium Level 2.2 MG/DL Total Bilirubin 0.9 MG/DL Aspartate Amino Transf 18 U/L (AST/SGOT) Alanine Aminotransferase 18 U/L (ALT/SGPT) Alkaline Phosphatase 50 U/L Total Protein 6.5 GM/DL Albumin 3.3 GM/DL Free Thyroxine 0.90 NG/DL Free Triiodothyronine (T3) 2.08 PG/ML pg/dL Assessment and Plan Discussed Condition With 81 Y/O M ADMITTED P FALL AF C SLOW RVR NOW SINUS YAMILE ON HI DOSE DOPAMINE LOW TSH T3 AND T4 ON LEVOTHYRIXINE HE HAS MODERATE PAIN FROM PELVIC FX HX PAF ON RIVAROXABAN S/P ABLATION LCTA RRR NO S3 WILL CK H&H /\ L THYROXINE WEAN DOPAMINE MAY NEED PPM + DRUG FOR AF Samir Hughes DO Feb 11, 2017 12:01
[2017-02-11] MEDS ORDERED: SODIUM CHLORID 0.9% 500 ML INJ 500 ML IV SCH (13:00)
[2017-02-11] MEDS: MORPHINE SULFATE 4 MG/ML INJ IV PRN ×2 (13:40→20:18)
[2017-02-11 14:30] LABS: HEMATOCRIT 32.3 % (39.0-51.0); MEAN CELL VOLUME 99.2 FL (80.0-100.0); MEAN CORPUSCULAR HEMOGLOBIN 33.6 PG (27.0-34.0); MEAN CORPUSCULAR HGB CONC 33.9 % (32.0-36.0); PLATELET COUNT 143 TH/MM3 (150-450); RED BLOOD COUNT 3.25 MIL/MM3 (4.50-5.90); RED CELL DISTRIBUTION WIDTH 14.7 % (11.6-17.2); REVIEW FLAG FINAL; WHITE BLOOD COUNT 7.9 TH/MM3 (4.0-11.0)
[2017-02-11] MEDS: HEPARIN-D5W INJ 250 ML IV SCH (14:32)
[2017-02-11 14:40] LABS: APTT (PATIENT) 30.4 SEC (24.3-30.1); INTERNATIONAL NORMALIZED RATIO 1.1 RATIO; PROTHROMBIN TIME - PATIENT 12.3 SEC (9.8-11.6)
[2017-02-11] MEDS: ONDANSETRON HCL 4 MG/2 ML VIAL IV PRN ×2 (15:30→20:18)
[2017-02-11 21:43] LABS: APTT (PATIENT) 38.9 SEC (24.3-30.1)
[2017-02-12] VITALS (15 sets, daily range): BP systolic 110–136; BP diastolic 55–70; PULSE 52–73; RESP 16–24; TEMP 97.6–98.3; O2SAT 91–97
[2017-02-12] MEDS: ONDANSETRON HCL 4 MG/2 ML VIAL IV PRN ×4 (01:36→20:18)
[2017-02-12] MEDS: SODIUM CHLORIDE 0.9% FLUSH 10 ML FLUSH IV FLUSH SCH ×3 (01:36→20:19)
[2017-02-12] MEDS: MORPHINE SULFATE 4 MG/ML INJ IV PRN ×3 (01:36→10:59)
[2017-02-12] MEDS: SODIUM CHLOR 0.45% 1000 ML INJ 1,000 ML IV SCH ×2 (01:37→09:19)
[2017-02-12] MEDS: CHLORHEXIDINE GLUCONATE 2 % 1 PACK (2 CLOTHS) TOP SCH (04:00)
[2017-02-12 04:36] LABS: AUTOMATED NEUTROPHIL # 5.3 TH/MM3 (1.8-7.7); BASOPHIL % 0.2 % (0.0-2.0); EOSINOPHIL % 0.4 % (0.0-4.0); HEMATOCRIT 31.9 % (39.0-51.0); HEMO FLAGS DIFF FINAL; LYMPH % 15.8 % (9.0-44.0); LYMPHOCYTE # 1.2 TH/MM3 (1.0-4.8); MEAN CELL VOLUME 98.9 FL (80.0-100.0); MEAN CORPUSCULAR HEMOGLOBIN 33.3 PG (27.0-34.0); MEAN CORPUSCULAR HGB CONC 33.6 % (32.0-36.0); MONO % 12.6 % (0.0-8.0); PLATELET COUNT 127 TH/MM3 (150-450); RED BLOOD COUNT 3.22 MIL/MM3 (4.50-5.90); RED CELL DISTRIBUTION WIDTH 15.1 % (11.6-17.2); WHITE BLOOD COUNT 7.4 TH/MM3 (4.0-11.0)
[2017-02-12 04:49] LABS: APTT (PATIENT) 51.3 SEC (24.3-30.1)
[2017-02-12 04:54] LABS: BICARBONATE 27.1 MEQ/L (21.0-32.0); MAGNESIUM 1.8 MG/DL (1.5-2.5); POTASSIUM 3.9 MEQ/L (3.5-5.1)
[2017-02-12] MEDS: LEVOTHYROXINE SODIUM 125 MCG TAB PO SCH (05:52)
[2017-02-12] MEDS: LEVOTHYROXINE SODIUM 50 MCG TAB PO SCH (05:52)
[2017-02-12] MEDS: HEPARIN-D5W INJ 250 ML IV SCH ×2 (05:55→15:04)
[2017-02-12] MEDS: DOCUSATE SODIUM 50 MG/SENNA 8.6 MG TAB PO SCH ×2 (09:00→20:47)
[2017-02-12] MEDS: MULTIVITAMIN INJ 10 ML, THIAMINE INJ 100 MG, FOLIC ACID INJ 1 MG in SODIUM CHLORID 0.9%... IV SCH (09:17)
[2017-02-12] MEDS: ACETAMINOPHEN/HYDROcodone 325 MG/5 MG TAB PO PRN (09:18)
[2017-02-12] MEDS: PANTOPRAZOLE SODIUM 40 MG VIAL IV SCH (09:18)
[2017-02-12] MEDS: MULTIVITAMIN TAB PO SCH (09:19)
[2017-02-12] MEDS: PRAVASTATIN SOD 20 MG TAB PO SCH (09:19)
[2017-02-12] MEDS: SODIUM CHLORIDE 0.9% FLUSH 10 ML FLUSH IVF SCH (09:20)
[2017-02-12 11:48] LABS: APTT (PATIENT) 47.7 SEC (24.3-30.1)
--- NOTE | 2017-02-12 13:17 | HHI.CCPN ---
Subjective Remarks/Hospital Course This is an 81-year-old male. Date of admission 02/10/2017. Past medical history includes atrial fibrillation, Adipex use up until October 2 years , weight loss medications using 2011 resulting in atrial fibrillation, chronic diastolic heart failure, hard of hearing, hypertension, dyslipidemia, obstructive sleep apnea requiring CPAP, chronic Xarelto use, ED, hypothyroidism , GERD, osteoarthritis. As patient rest to [facility] via EMS status post fall. He states he's had 3 falls in the past 2 weeks. Denies prodrome of dizziness/vertigo, palpitations when these events. He says he has a gait imbalance disorder a child last onto his legs any fell backwards onto his right side. He is expressing constant pain in that area.. He is a constant pain in that area. He is unable to flex the hip. The pain is worse with palpation. At the scene, EMS notes that on scene his heart rate was between 35 and 55. Slow A. fib was observed on 12-lead EKG. Initial blood pressure was low approximately 80/50 and after 2 L normal saline increased 106/80. He was started on low-dose peripheral dopamine at 5 mics grams per kilogram per minute is currently hemodynamically stable. Cardiology was consulted for evaluation. Electrolytes are pending. Troponin 0.02. 02/11: Patient in reviewing rhythm strips has gone in many different rhythms overnight including type I heart block, Mobitz type I, type II with 2-1 conduction and what appears to be complete heart block at times. Currently in Mobitz type I. Denies chest pain. Troponin negative. Electrolytes within normal limits. TSH 0.04. Levoxyl as been held currently. Currently on dopamine at 10 mcg/kg/m. Dr. Rader evaluated the patient yesterday. At that time thought to be sick sinus syndrome situation with no bradycardia associated H fibrillation requiring dopamine. Complaining of pain at right pelvic region. A fall. Subjective 02/12: Afebrile. Currently resting in bed in no acute distress. Requesting Neurontin for his neuropathy. Tolerating diet. Pain controlled requesting his Celebrex and Ultram Objective Vital Signs Date Time Temp Pulse Resp B/P Pulse Ox O2 Delivery O2 Flow Rate FiO2 02/12/17 12:05 65 02/12/17 12:00 97.8 20 119/67 94 02/12/17 07:18 Nasal Cannula 2.00 Intake and Output 02/11/17 02/11/17 02/12/17 08:00 16:00 00:00 Intake Total 1464 ml 1724 ml 442 ml Output Total 700 ml 950 ml 650 ml Balance 764 ml 774 ml -208 ml Result Diagram: 02/12/17 0400 02/12/17 0400 Imaging Last Impressions Chest X-Ray 02/10/17 1808 Signed Impressions: Service Date/Time: Friday, February 10, 2017 18:26 - CONCLUSION: 1. Interval placement of right internal jugular central venous line with no evidence of pneumothorax. 2. No acute cardiopulmonary disease. Tae Selby MD Hip and Pelvis X-Ray 02/10/17 1012 Signed Impressions: Service Date/Time: Friday, February 10, 2017 11:16 - CONCLUSION: Ramus fracture. I don't see hip fracture. Sushant Bernard MD FACR Femur X-Ray 02/10/17 1012 Signed Impressions: Service Date/Time: Friday, February 10, 2017 11:16 - CONCLUSION: Negative for fracture or dislocation. Follow up in 7-10 days is suggested if symptoms persist. Sushant Bernard MD FACR Head CT 02/10/17 0000 Signed Impressions: Service Date/Time: Friday, February 10, 2017 14:39 - CONCLUSION: Normal examination. Juan A Barrera MD Objective Remarks GENERAL: 81-year-old male, resting in bed in no acute distress SKIN: Warm and dry. Well perfused no rash HEAD: Atraumatic. Normocephalic. EYES: Pupils equal and round around 3 mm bilaterally and reactive. No scleral icterus. No injection or drainage. ENT: No nasal bleeding or discharge. Mucous membranes pink and moist. NECK: Trachea midline. No JVD. CARDIOVASCULAR: Bradycardia, IR. S1, S2. No S4. Without murmur RESPIRATORY: No accessory muscle use. Clear to auscultation. Breath sounds equal bilaterally. GASTROINTESTINAL: Abdomen soft, non-tender, nondistended. Hypoactive bowel sounds are appreciated. MUSCULOSKELETAL: Extremities without significant peripheral edema. No obvious deformities. NEUROLOGICAL: Awake and alert. No obvious cranial nerve deficits. Motor grossly within normal limits. Five out of 5 muscle strength in the arms and legs. Normal speech. Hard of hearing A/P Assessment and Plan Neuro/Psych: Headache Hard of hearing Acetaminophen for fever [place]/morphine for pain management Maintain bilateral hearing aids Holding Celebrex 200 mg by mouth twice a day for arthritis right management Resuming gabapentin 400 mg by mouth at night for neuropathy Holding Ultram 50 mg every 4 hours as needed for pain management CT head 02/10 revealed no acute intracranial findings CV: Dysrhythmia -SSS/Mobitz type I with 2:1 conduction at times Possible Mobitz type 2 yesterday. History of Atrial fibrillation status post ablation 2 Congestive heart failure unknown etiology History of hypertension Dyslipidemia Status post 1 L normal saline bolus in ED.. Currently on dopamine at 10 mics grams per kilogram per minute Holding fish oil 1 g daily. Continue simvastatin 10 mg by mouth daily for dyslipidemia Dr. Lanza -cardiology consulted. Dr. Rader evaluated the patient yesterday. Recommended dopamine. Likely need for pacemaker. SHERITA 2012 revealed normal systolic function. No regional wall motion abnormality 's. No valvular abnormality's dysfunction. Resp: Obstructive sleep apnea on CPAP at night Nasal cannula to maintain saturations greater than equal to 92% Incentive spirometry while awake Recommended bringing him home CPAP. On 2 L bleeding into 10 CWP GI: Gastroesophageal reflux disease Currently nothing by mouth Currently in Protonix 40 mg IV daily. On Prilosec 20 mg by mouth daily at home Raquel-Colace twice a day for bowel regimen : ED [place] catheter to maintain accurate I's nose any critically ill patient Holding Cialis 10 mg by mouth at night as needed Endo: Hypothyroidism - now with iatrogenic hyperthyroidism On Levoxyl 150 by mouth daily.. This will be held Check TSH - 0 normal T4. Low T3. Sliding-scale insulin if indicated to maintain euglycemia Renal: Creatinine currently within normal limits Monitor for infection Accurate I's and O's Heme: Chronic Xarelto use Normocytic anemia Thrombocytopenia On Xarelto secondary to chronic atrial fibrillation. Currently on hold due to pubic ramus fracture/bleeding risk Currently on heparin drip ID: Monitor for infection MSK: Right superior and inferior pubic ramus fracture PT evaluate and treat Orthopedic consultation FEN: Replace electrolytes as clinically indicated 2 g mag sulfate IV today 1. 20 mEq KCl. Access - Utilize peripheral IV. Central line if indicated Prophylaxis - GI - Protonix - DVT- SCD/heparin drip. Level II Gregory Masterson MD Feb 12, 2017 13:17 Gregory Masterson MD Feb 12, 2017 13:17 possibly will need temporary pacemaker placement. At risk for bleeding with ramus fracture close monitoring in ICU recommended Gregory Masterson MD Feb 12, 2017 13:17
--- NOTE | 2017-02-12 13:25 | EKG ---
Date Performed: 02/11/2017 Time Performed: 16:03:08 PTAGE: 81 years EKG: Sinus rhythm WITH FIRST DEGREE AV BLOCK ABNORMAL ECG PREVIOUS TRACING : 02/11/2017 09.25 Compared to prior tracing no significant change DOCTOR: Sheyla Rider Interpretating Date/Time 02/12/2017 13:19:58
[2017-02-12] MEDS ORDERED: POTASSIUM CHLORIDE 10 MEQ CAP PO ONE (13:30)
--- NOTE | 2017-02-12 14:10 | PD.CARD.PN ---
Objective Vital Signs / I&O Vital Signs Date Time Temp Pulse Resp B/P Pulse Ox O2 Delivery O2 Flow Rate FiO2 02/12/17 12:05 65 02/12/17 12:00 97.8 65 20 119/67 94 02/12/17 10:20 16 02/12/17 10:00 62 02/12/17 08:00 98.0 73 21 110/65 91 02/12/17 08:00 73 02/12/17 07:18 95 Nasal Cannula 2.00 02/12/17 06:00 63 02/12/17 04:00 98.3 70 16 121/58 93 02/12/17 04:00 71 02/12/17 02:00 68 02/12/17 00:00 98.0 67 22 123/67 93 02/12/17 00:00 67 02/11/17 22:00 74 02/11/17 20:00 74 02/11/17 20:00 97.8 74 26 133/76 95 02/11/17 19:30 95 Nasal Cannula 2.00 02/11/17 18:00 64 02/11/17 16:00 97.8 64 26 102/58 98 02/11/17 16:00 64 I/O 02/11/17 02/11/17 02/11/17 02/12/17 02/12/17 02/12/17 07:00 15:00 23:00 07:00 15:00 23:00 Intake Total 1464 ml 1724 ml 442 ml 857 ml Output Total 700 ml 950 ml 650 ml 1200 ml Balance 764 ml 774 ml -208 ml -343 ml Intake IV Total 1464 ml 1724 ml 442 ml 857 ml Output Urine Total 700 ml 950 ml 650 ml 1200 ml # Bowel Movements 1 Laboratory Laboratory Tests Test 02/11/17 02/12/17 02/12/17 02/12/17 20:10 04:00 11:00 11:55 Activated Partial 38.9 SEC 51.3 SEC 47.7 SEC Thromboplast Time White Blood Count 7.4 TH/MM3 Red Blood Count 3.22 MIL/MM3 Hemoglobin 10.7 GM/DL Hematocrit 31.9 % Mean Corpuscular Volume 98.9 FL Mean Corpuscular Hemoglobin 33.3 PG Mean Corpuscular Hemoglobin 33.6 % Concent Red Cell Distribution Width 15.1 % Platelet Count 127 TH/MM3 Mean Platelet Volume 9.2 FL Neutrophils (%) (Auto) 71.0 % Lymphocytes (%) (Auto) 15.8 % Monocytes (%) (Auto) 12.6 % Eosinophils (%) (Auto) 0.4 % Basophils (%) (Auto) 0.2 % Neutrophils # (Auto) 5.3 TH/MM3 Lymphocytes # (Auto) 1.2 TH/MM3 Monocytes # (Auto) 0.9 TH/MM3 Eosinophils # (Auto) 0.0 TH/MM3 Basophils # (Auto) 0.0 TH/MM3 CBC Comment DIFF FINAL Differential Comment Sodium Level 138 MEQ/L Potassium Level 3.9 MEQ/L Chloride Level 104 MEQ/L Carbon Dioxide Level 27.1 MEQ/L Anion Gap 7 MEQ/L Blood Urea Nitrogen 19 MG/DL Creatinine 0.73 MG/DL Estimat Glomerular Filtration 103 ML/MIN Rate Random Glucose 107 MG/DL Calcium Level 8.2 MG/DL Phosphorus Level 2.9 MG/DL Magnesium Level 1.8 MG/DL Random Cortisol 26.2 MCG/DL Assessment and Plan Discussed Condition With PT STABLE NSR 55 C PVC'S I CAN'T FIND RS SHOWING HI GRADE AV BLOCK RONCHI RRR NO S3 C/O PAIN WHEN MOVING IN BED DOPAMINE @ 3 MCG/M FOR HYPOTENSION HCT 31 STABLE CORTISOL 26 SAME CV WOLFE WILL PROBABLY NEED PPM XARELTO IS BEING HELD Samir Hughes DO Feb 12, 2017 14:10
[2017-02-12] MEDS: MAGNESIUM SULFATE 1 GM PREMIX 100 ML IV SCH ×2 (14:59→16:19)
[2017-02-12] MEDS: POLYETHYLENE GLYCOL 17 GM PKG PO ONE ×2 (15:00→16:19)
[2017-02-12] MEDS: GABAPENTIN 400 MG CAP PO SCH (20:18)
--- NOTE | 2017-02-12 20:42 | PD.CONS ---
[facility] Service Orthopedic Surgeons Consult Requested By Reason for Consult Closed Fracture of Superior Pubic Ramus Fracture Primary Care Physician Unknown Admission Diagnosis Syncope, Hypotension, Bradycardia, Anemia, Closed Fracture of Superior Pubic Ramus Fracture Diagnoses: (1) Closed fracture of pubic ramus Diagnosis: Principal (2) Headache Diagnosis: Principal (3) [place] (hard of hearing) Diagnosis: Principal (4) Congestive heart failure of unknown etiology Diagnosis: Principal (5) Dyslipidemia Diagnosis: Principal (6) Atrial fibrillation Diagnosis: Principal (7) Bradycardia by electrocardiogram Diagnosis: Principal (8) Obstructive sleep apnea Diagnosis: Principal (9) Chronic anticoagulation Diagnosis: Principal (10) Erectile dysfunction Diagnosis: Principal (11) Hypothyroidism Diagnosis: Principal (12) Normocytic anemia Diagnosis: Principal (13) Thrombocytopenia Diagnosis: Principal (14) Hypotension Diagnosis: Principal (15) Osteoarthritis Diagnosis: Principal (16) History of hypertension Diagnosis: Principal (17) Neuropathy Diagnosis: Principal (18) Alcohol use Diagnosis: Principal (19) weight loss drug use Diagnosis: Principal (20) Hypernatremia Chief Complaint: Right Pelvic Pain History of Present Illness Patient is a [id number] who sustained an injury when he fell backward due to a syncopal episode and landed on his right hip. He was brought via EMS to [facility] for further evaluation. He was found to be in bradycardia and hypotension. Radiographically, it demonstrated right superior pubic ramus fracture and [id number] osteoarthritis to the acetabulofemoral joint. He as admitted to the hospital. Orthopedic consultation was obtained. Past Family Social History Allergies: Uncoded Allergies: PHENDIMETRAZINE (Allergy, Severe, ATRIAL FIBRILLATION, 02/24/16) Active Ordered Medications Current Medications Medications (Trade) Dose Ordered Sig/Karan Route Start Time Stop Time Status Last Admin (DOPamine INJ PREMIX) 500 ml @ 0 mls/hr TITRATE IV 02/10/17 11:00 02/11/17 16:53 (Brethine Inj) 1 mg UNSCH PRN SQ 02/10/17 10:45 (NS Flush) 2 ml UNSCH PRN IV FLUSH 02/10/17 13:30 (NS Flush) 2 ml BID IV FLUSH 02/10/17 21:00 02/12/17 09:20 (Tylenol) 650 mg Q6H PRN PO 02/10/17 13:30 02/11/17 09:20 ([place] 5-325 Mg) 1 tab Q4H PRN PO 02/10/17 13:30 02/12/17 09:18 (Morphine Inj) 2 mg Q2H PRN IV 02/10/17 13:30 02/12/17 10:59 (Protonix Inj) 40 mg DAILY IV 02/11/17 09:00 02/12/17 09:18 (Zofran Inj) 4 mg Q6H PRN IV 02/10/17 13:30 02/12/17 11:29 Miscellaneous Information 1 Q361D XX 02/10/17 13:30 (Chlorhexidine 2% Cloth) 3 pack Taper DAILY@04 TOP 02/11/17 04:00 02/07/18 03:59 02/12/17 04:00 (Chlorhexidine 2% Cloth) 3 pack UNSCH PRN TOP 02/10/17 13:30 (Raquel-Colace) 1 tab BID PO 02/10/17 21:00 02/11/17 20:17 (Milk Of Magnesia Liq) 30 ml Q12H PRN PO 02/10/17 13:30 (Senokot) 17.2 mg Q12H PRN PO 02/10/17 13:30 (Dulcolax Supp) 10 mg DAILY PRN RECTAL 02/10/17 13:30 (Lactulose Liq) 30 ml DAILY PRN PO 02/10/17 13:30 (Theragran) 1 tab DAILY PO 02/11/17 09:00 02/12/17 09:19 Pravastatin Sodium 20 mg 20 mg DAILY PO 02/11/17 09:00 02/12/17 09:19 Multivitamins 10 ml/Thiamine HCl 100 mg/Folic Acid 1 mg/Sodium Chloride 511.2 ml @ 125 mls/hr DAILY IV 02/11/17 09:00 02/12/17 09:17 (1/2 NS 1000 ml Inj) 1,000 ml @ 84 mls/hr [id number] IV 02/10/17 15:00 02/12/17 09:19 (NS Flush) DAILY IVF 02/11/17 09:00 02/12/17 09:20 (NS Flush) UNSCH PRN IVF 02/10/17 18:15 (Synthroid) 125 mcg DAILY@06 PO 02/12/17 06:00 02/12/17 05:52 Levothyroxine Sodium 50 mcg 50 mcg DAILY@06 PO 02/12/17 06:00 02/12/17 05:52 (Heparin-D5W Inj) 250 ml @ 0 mls/hr TITRATE IV 02/11/17 12:45 02/12/17 15:04 (Neurontin) 400 mg HS PO 02/12/17 21:00 (Miralax) 17 gm DAILY PO 02/13/17 09:00 Reported Meds & Active Scripts Active Reported Percocet (Oxycodone-Acetaminophen) 10-325 mg Tab 1 Tab PO Q4H PRN Fish Oil ([place]-3 Fatty Acids) Unknown Strength Cap Unknown Dose Xarelto (Rivaroxaban) 20 Mg Tab 20 Mg PO DAILY Celebrex (Celecoxib) 200 Mg Cap 200 Mg PO BID Cialis (Tadalafil) 10 Mg Tab 10 Mg PO DAILY PRN Do not exceed 1 dose/day. Gabapentin 400 Mg Cap 400 Cap PO HS Levothyroxine (Levothyroxine Sodium) 150 Mcg Tab 150 Mcg PO DAILY Multi Vitamin (Multiple Vitamin) 1 Tab Tab 1 Tab PO DAILY Omeprazole 20 Mg Cap Simvastatin 10 Mg Tab 10 Mg PO DAILY Ultram (Tramadol HCl) 50 Mg Tab 50 Mg PO Q4H PRN E-400 (Vitamin E) 400 Unit Cap Physical Exam Vital Signs Vital Signs Date Time Temp Pulse Resp B/P Pulse Ox O2 Delivery O2 Flow Rate FiO2 02/12/17 18:00 65 02/12/17 16:00 97.6 66 24 136/70 94 02/12/17 16:00 66 02/12/17 14:00 55 02/12/17 12:05 65 02/12/17 12:00 97.8 65 20 119/67 94 02/12/17 10:20 16 02/12/17 10:00 62 02/12/17 08:00 98.0 73 21 110/65 91 02/12/17 08:00 73 02/12/17 07:18 95 Nasal Cannula 2.00 02/12/17 06:00 63 02/12/17 04:00 98.3 70 16 121/58 93 02/12/17 04:00 71 02/12/17 02:00 68 02/12/17 00:00 98.0 67 22 123/67 93 02/12/17 00:00 67 02/11/17 22:00 74 Physical Exam Right Pelvis skin intact no eccyhmosis noted tenderness with direct palpation to the lateral and groin area tenderness with movement of right leg limited hip ROM due to pain 2+ dorsalis pedis pulses +sensation denies numbness or tingling Left Pelvis skin intact no tenderness with direct palpation or with leg movement distally motor, neuro, and sensory intact Laboratory Laboratory Tests Test 02/12/17 02/12/17 02/12/17 04:00 11:00 11:55 White Blood Count 7.4 Red Blood Count 3.22 Hemoglobin 10.7 Hematocrit 31.9 Mean Corpuscular Volume 98.9 Mean Corpuscular Hemoglobin 33.3 Mean Corpuscular Hemoglobin 33.6 Concent Red Cell Distribution Width 15.1 Platelet Count 127 Mean Platelet Volume 9.2 Neutrophils (%) (Auto) 71.0 Lymphocytes (%) (Auto) 15.8 Monocytes (%) (Auto) 12.6 Eosinophils (%) (Auto) 0.4 Basophils (%) (Auto) 0.2 Neutrophils # (Auto) 5.3 Lymphocytes # (Auto) 1.2 Monocytes # (Auto) 0.9 Eosinophils # (Auto) 0.0 Basophils # (Auto) 0.0 CBC Comment DIFF FINAL Differential Comment Activated Partial 51.3 47.7 Thromboplast Time Sodium Level 138 Potassium Level 3.9 Chloride Level 104 Carbon Dioxide Level 27.1 Anion Gap 7 Blood Urea Nitrogen 19 Creatinine 0.73 Estimat Glomerular Filtration 103 Rate Random Glucose 107 Calcium Level 8.2 Phosphorus Level 2.9 Magnesium Level 1.8 Random Cortisol 26.2 Result Diagram: 02/12/1739902/12/17 040 Assessment & Plan Problem List: (1) Fracture of pubic ramus Assessment and Plan Patient's condition was discussed, his options of treatment was discussed. Reviewed CT scan finding with patient and family in detail. Recommend conservative approach at this time. Physical therapy - weight bearing as tolerated Advised to let his symptoms guide him as to how weight to put through his RLE. Advised that these kind of fractures may take up to 2 months to heal. In regards to his hip osteoarthritis, motion and non-pounding exercises is recommended. The option of corticosteroid injection is a consideration. Dr. Costa spoke with patient. Patient asked appropriate questions. All questions answered. Will continue to monitor. Loyd Sarmiento Feb 12, 2017 20:42
[2017-02-13] VITALS (18 sets, daily range): BP systolic 104–134; BP diastolic 56–70; PULSE 58–69; RESP 10–29; TEMP 98–98.6; O2SAT 91–99
[2017-02-13] MEDS: ONDANSETRON HCL 4 MG/2 ML VIAL IV PRN ×2 (01:18→08:08)
[2017-02-13] MEDS: MORPHINE SULFATE 4 MG/ML INJ IV PRN ×3 (01:19→15:02)
[2017-02-13] MEDS: CHLORHEXIDINE GLUCONATE 2 % 1 PACK (2 CLOTHS) TOP SCH (04:00)
[2017-02-13 04:39] LABS: AUTOMATED NEUTROPHIL # 4.4 TH/MM3 (1.8-7.7); BASOPHIL % 0.2 % (0.0-2.0); EOSINOPHIL % 0.5 % (0.0-4.0); HEMATOCRIT 30.3 % (39.0-51.0); HEMO FLAGS DIFF FINAL; LYMPH % 22.4 % (9.0-44.0); LYMPHOCYTE # 1.6 TH/MM3 (1.0-4.8); MEAN CELL VOLUME 98.7 FL (80.0-100.0); MEAN CORPUSCULAR HEMOGLOBIN 33.3 PG (27.0-34.0); MEAN CORPUSCULAR HGB CONC 33.7 % (32.0-36.0); MONO % 14.9 % (0.0-8.0); PLATELET COUNT 129 TH/MM3 (150-450); RED BLOOD COUNT 3.07 MIL/MM3 (4.50-5.90); RED CELL DISTRIBUTION WIDTH 15.1 % (11.6-17.2); WHITE BLOOD COUNT 7.1 TH/MM3 (4.0-11.0)
[2017-02-13 04:50] LABS: APTT (PATIENT) 46.2 SEC (24.3-30.1)
[2017-02-13 05:01] LABS: ANION GAP 7 MEQ/L (5-15); AST (GOT) 15 U/L (15-37); BICARBONATE 27.6 MEQ/L (21.0-32.0); BLOOD UREA NITROGEN 14 MG/DL (7-18); CHLORIDE 102 MEQ/L (98-107); GLOMERULAR FILTRATION RATE 112 ML/MIN (>89); MAGNESIUM 2.2 MG/DL (1.5-2.5); POTASSIUM 3.8 MEQ/L (3.5-5.1); SODIUM (NA) 137 MEQ/L (136-145)
[2017-02-13 05:02] LABS: ALT (GPT) 15 U/L (12-78)
[2017-02-13 05:04] LABS: ALKALINE PHOSPHATASE 44 U/L (45-117); TOTAL BILIRUBIN ADULT 0.9 MG/DL (0.2-1.0)
[2017-02-13] MEDS: SODIUM CHLOR 0.45% 1000 ML INJ 1,000 ML IV SCH (06:09)
[2017-02-13] MEDS: LEVOTHYROXINE SODIUM 50 MCG TAB PO SCH (06:10)
[2017-02-13] MEDS: LEVOTHYROXINE SODIUM 125 MCG TAB PO SCH (06:10)
[2017-02-13] MEDS: PANTOPRAZOLE SODIUM 40 MG VIAL IV SCH (07:59)
[2017-02-13] MEDS: SODIUM CHLORIDE 0.9% FLUSH 10 ML FLUSH IV FLUSH SCH ×2 (07:59→21:03)
[2017-02-13] MEDS: SODIUM CHLORIDE 0.9% FLUSH 10 ML FLUSH IVF SCH (07:59)
[2017-02-13] MEDS: PRAVASTATIN SOD 20 MG TAB PO SCH (08:00)
[2017-02-13] MEDS: MULTIVITAMIN TAB PO SCH (08:00)
--- NOTE | 2017-02-13 08:29 | HHI.CCPN ---
Subjective Remarks/Hospital Course This is an 81-year-old male. Date of admission 02/10/2017. Past medical history includes atrial fibrillation, Adipex use up until October 2 years , weight loss medications using 2011 resulting in atrial fibrillation, chronic diastolic heart failure, hard of hearing, hypertension, dyslipidemia, obstructive sleep apnea requiring CPAP, chronic Xarelto use, ED, hypothyroidism , GERD, osteoarthritis. As patient rest to [facility] via EMS status post fall. He states he's had 3 falls in the past 2 weeks. Denies prodrome of dizziness/vertigo, palpitations when these events. He says he has a gait imbalance disorder a child last onto his legs any fell backwards onto his right side. He is expressing constant pain in that area.. He is a constant pain in that area. He is unable to flex the hip. The pain is worse with palpation. At the scene, EMS notes that on scene his heart rate was between 35 and 55. Slow A. fib was observed on 12-lead EKG. Initial blood pressure was low approximately 80/50 and after 2 L normal saline increased 106/80. He was started on low-dose peripheral dopamine at 5 mics grams per kilogram per minute is currently hemodynamically stable. Cardiology was consulted for evaluation. Electrolytes are pending. Troponin 0.02. 02/11: Patient in reviewing rhythm strips has gone in many different rhythms overnight including type I heart block, Mobitz type I, type II with 2-1 conduction and what appears to be complete heart block at times. Currently in Mobitz type I. Denies chest pain. Troponin negative. Electrolytes within normal limits. TSH 0.04. Levoxyl as been held currently. Currently on dopamine at 10 mcg/kg/m. Dr. Rader evaluated the patient yesterday. At that time thought to be sick sinus syndrome situation with no bradycardia associated H fibrillation requiring dopamine. Complaining of pain at right pelvic region. A fall. Subjective 02/12: Afebrile. Currently resting in bed in no acute distress. Requesting Neurontin for his neuropathy. Tolerating diet. Pain controlled requesting his Celebrex and Ultram 02/13 No events overnight. Patient is lying in bed in NAD. Off Dopamine. On Heparin drip. Objective Vital Signs Date Time Temp Pulse Resp B/P Pulse Ox O2 Delivery O2 Flow Rate FiO2 02/13/17 08:00 92 Nasal Cannula 2.00 02/13/17 06:00 66 02/13/17 04:00 98.0 10 112/64 Intake and Output 02/12/17 02/12/17 02/13/17 08:00 16:00 00:00 Intake Total 857 ml 1915 ml 910 ml Output Total 1200 ml 1450 ml 850 ml Balance -343 ml 465 ml 60 ml Result Diagram: 02/13/17 0419 02/13/17 0419 Other Results Laboratory Tests Test 02/12/17 02/12/17 02/13/17 11:00 11:55 04:19 Activated Partial 47.7 SEC 46.2 SEC Thromboplast Time Random Cortisol 26.2 MCG/DL White Blood Count 7.1 TH/MM3 Red Blood Count 3.07 MIL/MM3 Hemoglobin 10.2 GM/DL Hematocrit 30.3 % Mean Corpuscular Volume 98.7 FL Mean Corpuscular Hemoglobin 33.3 PG Mean Corpuscular Hemoglobin 33.7 % Concent Red Cell Distribution Width 15.1 % Platelet Count 129 TH/MM3 Mean Platelet Volume 9.2 FL Neutrophils (%) (Auto) 62.0 % Lymphocytes (%) (Auto) 22.4 % Monocytes (%) (Auto) 14.9 % Eosinophils (%) (Auto) 0.5 % Basophils (%) (Auto) 0.2 % Neutrophils # (Auto) 4.4 TH/MM3 Lymphocytes # (Auto) 1.6 TH/MM3 Monocytes # (Auto) 1.1 TH/MM3 Eosinophils # (Auto) 0.0 TH/MM3 Basophils # (Auto) 0.0 TH/MM3 CBC Comment DIFF FINAL Differential Comment Sodium Level 137 MEQ/L Potassium Level 3.8 MEQ/L Chloride Level 102 MEQ/L Carbon Dioxide Level 27.6 MEQ/L Anion Gap 7 MEQ/L Blood Urea Nitrogen 14 MG/DL Creatinine 0.68 MG/DL Estimat Glomerular Filtration 112 ML/MIN Rate Random Glucose 92 MG/DL Calcium Level 8.0 MG/DL Phosphorus Level 2.7 MG/DL Magnesium Level 2.2 MG/DL Total Bilirubin 0.9 MG/DL Aspartate Amino Transf 15 U/L (AST/SGOT) Alanine Aminotransferase 15 U/L (ALT/SGPT) Alkaline Phosphatase 44 U/L Total Protein 6.4 GM/DL Albumin 3.0 GM/DL Imaging Last Impressions Chest X-Ray 02/10/17 3730 Signed Impressions: Service Date/Time: Friday, February 10, 2017 18:26 - CONCLUSION: 1. Interval placement of right internal jugular central venous line with no evidence of pneumothorax. 2. No acute cardiopulmonary disease. Tae Selby MD Hip and Pelvis X-Ray 02/10/17 1012 Signed Impressions: Service Date/Time: Friday, February 10, 2017 11:16 - CONCLUSION: Ramus fracture. I don't see hip fracture. Sushant Bernard MD FACR Femur X-Ray 02/10/17 1012 Signed Impressions: Service Date/Time: Friday, February 10, 2017 11:16 - CONCLUSION: Negative for fracture or dislocation. Follow up in 7-10 days is suggested if symptoms persist. Sushant Bernard MD FACR Head CT 02/10/17 0000 Signed Impressions: Service Date/Time: Friday, February 10, 2017 14:39 - CONCLUSION: Normal examination. Juan A Barrera MD Objective Remarks GENERAL: 81-year-old male, resting in bed in no acute distress SKIN: Warm and dry. Well perfused no rash HEAD: Atraumatic. Normocephalic. EYES: Pupils equal and round around 3 mm bilaterally and reactive. No scleral icterus. No injection or drainage. ENT: No nasal bleeding or discharge. Mucous membranes pink and moist. NECK: Trachea midline. No JVD. CARDIOVASCULAR: Bradycardia, IR. S1, S2. No S4. Without murmur RESPIRATORY: No accessory muscle use. Clear to auscultation. Breath sounds equal bilaterally. GASTROINTESTINAL: Abdomen soft, non-tender, nondistended. Hypoactive bowel sounds are appreciated. MUSCULOSKELETAL: Extremities without significant peripheral edema. No obvious deformities. NEUROLOGICAL: Awake and alert. No obvious cranial nerve deficits. Motor grossly within normal limits. Five out of 5 muscle strength in the arms and legs. Normal speech. Hard of hearing A/P Assessment and Plan Neuro/Psych: Headache Hard of hearing Acetaminophen for fever Pickrell/morphine for pain management Maintain bilateral hearing aids gabapentin 400 mg by mouth at night for neuropathy CT head 02/10 revealed no acute intracranial findings CV: Dysrhythmia -SSS/Mobitz type I with 2:1 conduction at times Possible Mobitz type 2 yesterday. History of Atrial fibrillation status post ablation 2 Congestive heart failure unknown etiology History of hypertension Dyslipidemia Status post 1 L normal saline bolus in ED.. Off Dopamine monitor HR and BP keep MAP>65mmHg Continue simvastatin 10 mg by mouth daily for dyslipidemia Cards is following- Dr. Rader, for possible pacemaker on Wednesday 02/14 SHERITA 2012 revealed normal systolic function. No regional wall motion abnormality 's. No valvular abnormality's dysfunction. On Heparin drip for Afib- monitor PTT per protocol. Resp: Obstructive sleep apnea on CPAP at night Continue with oxygen keep sat > 92% Incentive spirometry while awake Bronchodilators CXR 02/10: No cardiopulmonary disease GI: Gastroesophageal reflux disease On PO diet Currently in Protonix 40 mg IV daily. On Prilosec 20 mg by mouth daily at home Raquel-Colace twice a day for bowel regimen Endo: Hypothyroidism - now with iatrogenic hyperthyroidism TSH - 0.04, normal FT4. Low FT3. Hold Synthroid Sliding-scale insulin if indicated to maintain euglycemia Renal: Monitor renal function, I/O's, electrolytes replacement as needed d/c IVF Heme: Chronic Xarelto use Normocytic anemia Thrombocytopenia On Xarelto secondary to chronic atrial fibrillation. Currently on hold due to pubic ramus fracture/bleeding risk Currently on heparin drip ID: Monitor for signs of infection( Fevr, WBC) MSK: Right superior and inferior pubic ramus fracture PT evaluate and treat Orthopedic is following- conservative management per ortho. Access - Utilize peripheral IV. Prophylaxis - GI - Protonix - DVT- SCD/heparin drip. Will sign off and transfer care to [facility] Level III Blake Leon MD Feb 13, 2017 08:29
[2017-02-13] MEDS: POLYETHYLENE GLYCOL 17 GM PKG PO SCH (09:00)
[2017-02-13] MEDS: DOCUSATE SODIUM 50 MG/SENNA 8.6 MG TAB PO SCH ×2 (09:00→21:03)
[2017-02-13] MEDS: MULTIVITAMIN INJ 10 ML, THIAMINE INJ 100 MG, FOLIC ACID INJ 1 MG in SODIUM CHLORID 0.9%... IV SCH (09:33)
--- NOTE | 2017-02-13 10:17 | PD.CARD.PN ---
Subjective Subjective Remarks Patient denies CP or SOB. Currently hemodynamically stable off dopamine. Primary complaint orthopedic pain (Viktoria López) Objective Medications Current Medications Medications (Trade) Dose Ordered Sig/Karan Route Start Time Stop Time Status Last Admin (DOPamine INJ PREMIX) 500 ml @ 0 mls/hr TITRATE IV 02/10/17 11:00 02/11/17 16:53 (Brethine Inj) 1 mg UNSCH PRN SQ 02/10/17 10:45 (NS Flush) 2 ml UNSCH PRN IV FLUSH 02/10/17 13:30 (NS Flush) 2 ml BID IV FLUSH 02/10/17 21:00 02/13/17 07:59 (Tylenol) 650 mg Q6H PRN PO 02/10/17 13:30 02/11/17 09:20 ([place] 5-325 Mg) 1 tab Q4H PRN PO 02/10/17 13:30 02/12/17 09:18 (Morphine Inj) 2 mg Q2H PRN IV 02/10/17 13:30 02/13/17 08:00 (Protonix Inj) 40 mg DAILY IV 02/11/17 09:00 02/13/17 07:59 (Zofran Inj) 4 mg Q6H PRN IV 02/10/17 13:30 02/13/17 08:08 Miscellaneous Information 1 Q361D XX 02/10/17 13:30 (Chlorhexidine 2% Cloth) 3 pack Taper DAILY@04 TOP 02/11/17 04:00 02/07/18 03:59 02/13/17 04:00 (Chlorhexidine 2% Cloth) 3 pack UNSCH PRN TOP 02/10/17 13:30 (Raquel-Colace) 1 tab BID PO 02/10/17 21:00 02/11/17 20:17 (Milk Of Magnesia Liq) 30 ml Q12H PRN PO 02/10/17 13:30 (Senokot) 17.2 mg Q12H PRN PO 02/10/17 13:30 (Dulcolax Supp) 10 mg DAILY PRN RECTAL 02/10/17 13:30 (Lactulose Liq) 30 ml DAILY PRN PO 02/10/17 13:30 (Theragran) 1 tab DAILY PO 02/11/17 09:00 02/13/17 08:00 Pravastatin Sodium 20 mg 20 mg DAILY PO 02/11/17 09:00 02/13/17 08:00 (Mvi-12 Inj/ Thiamine Inj/ Folvite Inj/NS 500 ml Inj) 511.2 ml @ 125 mls/hr DAILY IV 02/11/17 09:00 02/13/17 09:33 (NS Flush) DAILY IVF 02/11/17 09:00 02/13/17 07:59 (NS Flush) UNSCH PRN IVF 02/10/17 18:15 (Synthroid) 125 mcg DAILY@06 PO 02/12/17 06:00 02/13/17 06:10 Levothyroxine Sodium 50 mcg 50 mcg DAILY@06 PO 02/12/17 06:00 Hold 02/13/17 06:10 (Heparin-D5W Inj) 250 ml @ 0 mls/hr TITRATE IV 02/11/17 12:45 02/12/17 15:04 (Neurontin) 400 mg HS PO 02/12/17 21:00 02/12/17 20:18 (Miralax) 17 gm DAILY PO 02/13/17 09:00 Vital Signs / I&O Vital Signs Date Time Temp Pulse Resp B/P Pulse Ox O2 Delivery O2 Flow Rate FiO2 02/13/17 09:00 64 25 116/66 96 02/13/17 08:00 69 02/13/17 08:00 98.3 68 20 116/60 92 02/13/17 08:00 92 Nasal Cannula 2.00 02/13/17 07:00 61 20 134/63 92 02/13/17 06:00 66 02/13/17 04:00 98.0 60 10 112/64 92 02/13/17 04:00 60 02/13/17 02:00 63 02/13/17 00:00 67 02/13/17 00:00 98.0 67 19 132/70 96 02/12/17 22:01 96 Nasal Cannula 2.00 02/12/17 22:00 67 02/12/17 20:00 52 02/12/17 20:00 98.1 52 18 121/55 97 02/12/17 18:00 65 02/12/17 16:00 97.6 66 24 136/70 94 02/12/17 16:00 66 02/12/17 14:00 55 02/12/17 12:05 65 02/12/17 12:00 97.8 65 20 119/67 94 02/12/17 10:20 16 I/O 02/12/17 02/12/17 02/12/17 02/13/17 02/13/17 02/13/17 07:00 15:00 23:00 07:00 15:00 23:00 Intake Total 857 ml 1915 ml 910 ml 726 ml Output Total 1200 ml 1450 ml 850 ml 950 ml Balance -343 ml 465 ml 60 ml -224 ml Intake Oral 220 ml 240 ml IV Total 857 ml 1695 ml 670 ml 726 ml Output Urine Total 1200 ml 1450 ml 850 ml 950 ml # Bowel Movements 0 Physical Exam GENERAL: Obese male in ICU, no distress SKIN: Warm and dry. HEAD: Normocephalic. EYES: No scleral icterus. No injection or drainage. NECK: Supple, trachea midline. No JVD or lymphadenopathy. CARDIOVASCULAR: Regular rate and rhythm without murmurs, gallops, or rubs. RESPIRATORY: Breath sounds equal bilaterally. No accessory muscle use. nasal cannula GASTROINTESTINAL: Abdomen soft, non-tender, nondistended. MUSCULOSKELETAL: No cyanosis, or edema. BACK: Nontender without obvious deformity. No CVA tenderness. Laboratory Laboratory Tests Test 02/12/17 02/12/17 02/13/17 11:00 11:55 04:19 Activated Partial 47.7 SEC 46.2 SEC Thromboplast Time Random Cortisol 26.2 MCG/DL White Blood Count 7.1 TH/MM3 Red Blood Count 3.07 MIL/MM3 Hemoglobin 10.2 GM/DL Hematocrit 30.3 % Mean Corpuscular Volume 98.7 FL Mean Corpuscular Hemoglobin 33.3 PG Mean Corpuscular Hemoglobin 33.7 % Concent Red Cell Distribution Width 15.1 % Platelet Count 129 TH/MM3 Mean Platelet Volume 9.2 FL Neutrophils (%) (Auto) 62.0 % Lymphocytes (%) (Auto) 22.4 % Monocytes (%) (Auto) 14.9 % Eosinophils (%) (Auto) 0.5 % Basophils (%) (Auto) 0.2 % Neutrophils # (Auto) 4.4 TH/MM3 Lymphocytes # (Auto) 1.6 TH/MM3 Monocytes # (Auto) 1.1 TH/MM3 Eosinophils # (Auto) 0.0 TH/MM3 Basophils # (Auto) 0.0 TH/MM3 CBC Comment DIFF FINAL Differential Comment Sodium Level 137 MEQ/L Potassium Level 3.8 MEQ/L Chloride Level 102 MEQ/L Carbon Dioxide Level 27.6 MEQ/L Anion Gap 7 MEQ/L Blood Urea Nitrogen 14 MG/DL Creatinine 0.68 MG/DL Estimat Glomerular Filtration 112 ML/MIN Rate Random Glucose 92 MG/DL Calcium Level 8.0 MG/DL Phosphorus Level 2.7 MG/DL Magnesium Level 2.2 MG/DL Total Bilirubin 0.9 MG/DL Aspartate Amino Transf 15 U/L (AST/SGOT) Alanine Aminotransferase 15 U/L (ALT/SGPT) Alkaline Phosphatase 44 U/L Total Protein 6.4 GM/DL Albumin 3.0 GM/DL Imaging Last 72 hours Impressions Chest X-Ray 02/10/17 1808 Signed Impressions: Service Date/Time: Friday, February 10, 2017 18:26 - CONCLUSION: 1. Interval placement of right internal jugular central venous line with no evidence of pneumothorax. 2. No acute cardiopulmonary disease. Tae Selby MD Hip and Pelvis X-Ray 02/10/17 1012 Signed Impressions: Service Date/Time: Friday, February 10, 2017 11:16 - CONCLUSION: Ramus fracture. I don't see hip fracture. Sushant Bernard MD FACR Femur X-Ray 02/10/17 1012 Signed Impressions: Service Date/Time: Friday, February 10, 2017 11:16 - CONCLUSION: Negative for fracture or dislocation. Follow up in 7-10 days is suggested if symptoms persist. Sushant Bernard MD FACR Chest X-Ray 02/10/17 1009 Signed Impressions: Service Date/Time: Friday, February 10, 2017 11:35 - CONCLUSION: Possible mild failure. Sushnat Bernard MD FACR (Viktoria López) Assessment and Plan Assessment and Plan ASSESSMENT Traumatic near syncopal fall resulting in right superior pubic ramus fracture. Hypotensive and bradycardiac on admission. 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 Recurrent near syncopal episodes the past two weeks History of atrial flutter on Xarelto prior to admission, currently on heparin. Plts trending down Hyperlipidemia PLAN: We will plan for PPM placement on Monday afternoon Continue to monitor plts Patient seen and evaluated by Dr. Mcneill. (Viktoria López) Assessment and Plan Risks of Pacer reviewed in detail will proceed MON. (Arely Mcneill MD) Viktoria López Feb 13, 2017 10:17 Arely Mcneill MD Feb 13, 2017 18:24
[2017-02-13] MEDS: HEPARIN-D5W INJ 250 ML IV SCH (13:31)
--- NOTE | 2017-02-13 16:05 | PD.CONS ---
History of Present Illness Service primary care Consult Requested By Primary Care Physician Nubia Bonilla DO Diagnoses: (1) Bradycardia by electrocardiogram (2) Bradycardia (3) Syncope and collapse (4) Fracture of pubic ramus History of Present Illness pt had 4 falls prior to presenting to ED he would become weak look up and become dizzy and pass out Review of Systems Constitutional: COMPLAINS OF: Dizziness Musculoskeletal: COMPLAINS OF: Muscle aches, Back pain Past Family Social History Allergies: Uncoded Allergies: PHENDIMETRAZINE (Allergy, Severe, ATRIAL FIBRILLATION, 02/24/16) Past Medical History afib htn obesity Past Surgical History many orthopedic injuries knees hips back Reported Medications Reported Meds & Active Scripts Active Reported Percocet (Oxycodone-Acetaminophen) 10-325 mg Tab 1 Tab PO Q4H PRN Fish Oil ([place]-3 Fatty Acids) Unknown Strength Cap Unknown Dose Xarelto (Rivaroxaban) 20 Mg Tab 20 Mg PO DAILY Celebrex (Celecoxib) 200 Mg Cap 200 Mg PO BID Cialis (Tadalafil) 10 Mg Tab 10 Mg PO DAILY PRN Do not exceed 1 dose/day. Gabapentin 400 Mg Cap 400 Cap PO HS Levothyroxine (Levothyroxine Sodium) 150 Mcg Tab 150 Mcg PO DAILY Multi Vitamin (Multiple Vitamin) 1 Tab Tab 1 Tab PO DAILY Omeprazole 20 Mg Cap Simvastatin 10 Mg Tab 10 Mg PO DAILY Ultram (Tramadol HCl) 50 Mg Tab 50 Mg PO Q4H PRN E-400 (Vitamin E) 400 Unit Cap Active Ordered Medications Last Impressions Chest X-Ray 02/10/17 1808 Signed Impressions: Service Date/Time: Friday, February 10, 2017 18:26 - CONCLUSION: 1. Interval placement of right internal jugular central venous line with no evidence of pneumothorax. 2. No acute cardiopulmonary disease. Tae Selby MD Hip and Pelvis X-Ray 02/10/17 1012 Signed Impressions: Service Date/Time: Friday, February 10, 2017 11:16 - CONCLUSION: Ramus fracture. I don't see hip fracture. Sushant Bernard MD FACR Femur X-Ray 02/10/17 1012 Signed Impressions: Service Date/Time: Friday, February 10, 2017 11:16 - CONCLUSION: Negative for fracture or dislocation. Follow up in 7-10 days is suggested if symptoms persist. Sushant Bernard MD FACR Head CT 02/10/17 0000 Signed Impressions: Service Date/Time: Friday, February 10, 2017 14:39 - CONCLUSION: Normal examination. Juan A Barrera MD Family History father with an [place] k mother in old age Social History non smoker rare drinker Physical Exam Vital Signs Vital Signs Date Time Temp Pulse Resp B/P Pulse Ox O2 Delivery O2 Flow Rate FiO2 02/13/17 13:00 61 20 104/60 93 02/13/17 12:00 98.0 58 29 113/61 96 02/13/17 12:00 58 02/13/17 11:00 64 28 93 02/13/17 10:00 64 02/13/17 10:00 64 22 99 02/13/17 09:00 64 25 116/66 96 02/13/17 08:00 69 02/13/17 08:00 98.3 68 20 116/60 92 02/13/17 08:00 92 Nasal Cannula 2.00 02/13/17 07:00 61 20 134/63 92 02/13/17 06:00 66 02/13/17 04:00 98.0 60 10 112/64 92 02/13/17 04:00 60 02/13/17 02:00 63 02/13/17 00:00 67 02/13/17 00:00 98.0 67 19 132/70 96 02/12/17 22:01 96 Nasal Cannula 2.00 02/12/17 22:00 67 02/12/17 20:00 52 02/12/17 20:00 98.1 52 18 121/55 97 02/12/17 18:00 65 02/12/17 16:00 97.6 66 24 136/70 94 02/12/17 16:00 66 Physical Exam GENERAL: This is a well-nourished, well-developed patient, in no apparent distress. SKIN: No rashes, ecchymoses or lesions. Cool and dry. HEAD: Atraumatic. Normocephalic. No temporal or scalp tenderness. EYES: Pupils equal round and reactive. Extraocular motions intact. No scleral icterus. No injection or drainage. ENT: Nose without bleeding, purulent drainage or septal hematoma. Throat without erythema, tonsillar hypertrophy or exudate. Uvula midline. Airway patent. NECK: Trachea midline. No JVD or lymphadenopathy. Supple, nontender, no meningeal signs. CARDIOVASCULAR: Regular rate and rhythm without murmurs, gallops, or rubs. RESPIRATORY: Clear to auscultation. Breath sounds equal bilaterally. No wheezes , rales, or rhonchi. GASTROINTESTINAL: Abdomen soft, non-tender, nondistended morbidly obese. No hepato-splenomegaly, or palpable masses. No guarding. MUSCULOSKELETAL: Extremities without clubbing, cyanosis, or edema. No joint tenderness, effusion, or edema noted. No calf tenderness. Negative Homans sign bilaterally. NEUROLOGICAL: Awake and alert. Cranial nerves II through XII intact. Motor and sensory grossly within normal limits. Five out of 5 muscle strength in all muscle groups. Normal speech. Laboratory Laboratory Tests Test 02/13/17 04:19 White Blood Count 7.1 Red Blood Count 3.07 Hemoglobin 10.2 Hematocrit 30.3 Mean Corpuscular Volume 98.7 Mean Corpuscular Hemoglobin 33.3 Mean Corpuscular Hemoglobin 33.7 Concent Red Cell Distribution Width 15.1 Platelet Count 129 Mean Platelet Volume 9.2 Neutrophils (%) (Auto) 62.0 Lymphocytes (%) (Auto) 22.4 Monocytes (%) (Auto) 14.9 Eosinophils (%) (Auto) 0.5 Basophils (%) (Auto) 0.2 Neutrophils # (Auto) 4.4 Lymphocytes # (Auto) 1.6 Monocytes # (Auto) 1.1 Eosinophils # (Auto) 0.0 Basophils # (Auto) 0.0 CBC Comment DIFF FINAL Differential Comment Activated Partial 46.2 Thromboplast Time Sodium Level 137 Potassium Level 3.8 Chloride Level 102 Carbon Dioxide Level 27.6 Anion Gap 7 Blood Urea Nitrogen 14 Creatinine 0.68 Estimat Glomerular Filtration 112 Rate Random Glucose 92 Calcium Level 8.0 Phosphorus Level 2.7 Magnesium Level 2.2 Total Bilirubin 0.9 Aspartate Amino Transf 15 (AST/SGOT) Alanine Aminotransferase 15 (ALT/SGPT) Alkaline Phosphatase 44 Total Protein 6.4 Albumin 3.0 Result Diagram: 02/13/17 0419 02/13/17 0419 Imaging Last 72 hours Impressions Chest X-Ray 02/10/17 4766 Signed Impressions: Service Date/Time: Friday, February 10, 2017 18:26 - CONCLUSION: 1. Interval placement of right internal jugular central venous line with no evidence of pneumothorax. 2. No acute cardiopulmonary disease. Tae Selby MD Course Reported Meds & Active Scripts Active Reported Percocet (Oxycodone-Acetaminophen) 10-325 mg Tab 1 Tab PO Q4H PRN Fish Oil ([place]-3 Fatty Acids) Unknown Strength Cap Unknown Dose Xarelto (Rivaroxaban) 20 Mg Tab 20 Mg PO DAILY Celebrex (Celecoxib) 200 Mg Cap 200 Mg PO BID Cialis (Tadalafil) 10 Mg Tab 10 Mg PO DAILY PRN Do not exceed 1 dose/day. Gabapentin 400 Mg Cap 400 Cap PO HS Levothyroxine (Levothyroxine Sodium) 150 Mcg Tab 150 Mcg PO DAILY Multi Vitamin (Multiple Vitamin) 1 Tab Tab 1 Tab PO DAILY Omeprazole 20 Mg Cap Simvastatin 10 Mg Tab 10 Mg PO DAILY Ultram (Tramadol HCl) 50 Mg Tab 50 Mg PO Q4H PRN E-400 (Vitamin E) 400 Unit Cap Assessment and Plan Assessment and Plan may require pacemaker Discussed Condition With patient and cardiology Discharge Planning home Problem Qualifiers (1) Fracture of pubic ramus: Gaudencio Bonilla DO Feb 13, 2017 16:05
[2017-02-13] MEDS: ACETAMINOPHEN/HYDROcodone 325 MG/5 MG TAB PO PRN (21:02)
[2017-02-13] MEDS: GABAPENTIN 400 MG CAP PO SCH (21:03)
[2017-02-14] VITALS (14 sets, daily range): BP systolic 99–155; BP diastolic 53–79; PULSE 55–74; RESP 22–28; TEMP 98.2–99; O2SAT 90–95
[2017-02-14] MEDS: CHLORHEXIDINE GLUCONATE 2 % 1 PACK (2 CLOTHS) TOP SCH (04:00)
[2017-02-14] MEDS: LEVOTHYROXINE SODIUM 125 MCG TAB PO SCH (05:58)
[2017-02-14] MEDS: HEPARIN-D5W INJ 250 ML IV SCH ×2 (05:59→19:51)
[2017-02-14 06:48] LABS: BICARBONATE 29.4 MEQ/L (21.0-32.0); POTASSIUM 3.5 MEQ/L (3.5-5.1)
[2017-02-14 06:49] LABS: AUTOMATED NEUTROPHIL # 2.4 TH/MM3 (1.8-7.7); BASOPHIL % 0.3 % (0.0-2.0); EOSINOPHIL # 0.1 TH/MM3 (0-0.4); EOSINOPHIL % 1.6 % (0.0-4.0); HEMATOCRIT 30.1 % (39.0-51.0); HEMO FLAGS DIFF FINAL; LYMPH % 38.2 % (9.0-44.0); LYMPHOCYTE # 2.2 TH/MM3 (1.0-4.8); MEAN CELL VOLUME 98.7 FL (80.0-100.0); MEAN CORPUSCULAR HEMOGLOBIN 34.4 PG (27.0-34.0); MEAN CORPUSCULAR HGB CONC 34.9 % (32.0-36.0); NEUT % 42.9 % (16.0-70.0); PLATELET COUNT 152 TH/MM3 (150-450); RED BLOOD COUNT 3.04 MIL/MM3 (4.50-5.90); RED CELL DISTRIBUTION WIDTH 14.7 % (11.6-17.2); WHITE BLOOD COUNT 5.7 TH/MM3 (4.0-11.0)
[2017-02-14] MEDS: MULTIVITAMIN TAB PO SCH (08:31)
[2017-02-14] MEDS: POLYETHYLENE GLYCOL 17 GM PKG PO SCH (08:32)
[2017-02-14] MEDS: PANTOPRAZOLE SODIUM 40 MG VIAL IV SCH (08:32)
[2017-02-14] MEDS: PRAVASTATIN SOD 20 MG TAB PO SCH (08:32)
[2017-02-14] MEDS: SODIUM CHLORIDE 0.9% FLUSH 10 ML FLUSH IVF SCH (08:32)
[2017-02-14] MEDS: SODIUM CHLORIDE 0.9% FLUSH 10 ML FLUSH IV FLUSH SCH ×2 (08:32→19:48)
[2017-02-14] MEDS: DOCUSATE SODIUM 50 MG/SENNA 8.6 MG TAB PO SCH ×2 (08:32→19:49)
[2017-02-14] MEDS: MULTIVITAMIN INJ 10 ML, THIAMINE INJ 100 MG, FOLIC ACID INJ 1 MG in SODIUM CHLORID 0.9%... IV SCH (08:36)
[2017-02-14] MEDS: ACETAMINOPHEN/HYDROcodone 325 MG/5 MG TAB PO PRN ×2 (08:38→23:03)
--- NOTE | 2017-02-14 12:12 | HHI.PR ---
Subjective Remarks resting quietly await cardiology decision re need for pacer hasnt been oob since monday will have PT eval and mobilize to prevent loss of motion Objective Vital Signs Date Time Temp Pulse Resp B/P Pulse Ox O2 Delivery O2 Flow Rate FiO2 02/14/17 11:08 91 21 02/14/17 10:00 72 02/14/17 09:45 28 02/14/17 08:00 66 02/14/17 08:00 98.6 66 28 131/69 94 02/14/17 06:00 65 02/14/17 04:00 98.3 62 23 90 02/14/17 04:00 62 02/14/17 02:00 60 02/14/17 00:00 65 02/14/17 00:00 98.2 65 25 126/70 91 02/14/17 00:00 98.3 65 25 126/70 91 02/13/17 22:00 68 02/13/17 20:39 94 21 02/13/17 20:00 63 02/13/17 20:00 98.6 63 23 116/64 92 02/13/17 18:00 61 02/13/17 16:00 98.4 62 29 114/60 91 02/13/17 16:00 62 02/13/17 15:00 64 26 108/56 91 02/13/17 14:00 66 27 109/60 92 02/13/17 14:00 66 02/13/17 13:00 61 20 104/60 93 I/O 02/13/17 02/13/17 02/13/17 02/14/17 02/14/17 02/14/17 07:00 15:00 23:00 07:00 15:00 23:00 Intake Total 726 ml 1307 ml 394 ml 88 ml Output Total 950 ml 975 ml 1900 ml 1000 ml Balance -224 ml 332 ml -1506 ml -912 ml Intake Oral 444 ml 240 ml IV Total 726 ml 863 ml 154 ml 88 ml Output Urine Total 950 ml 975 ml 1900 ml 1000 ml Stool Total 0 ml # Bowel Movements 0 0 0 Result Diagram: 02/14/17 0600 02/14/17 06 Objective Remarks GENERAL: SKIN: Warm and dry. HEAD: Atraumatic. Normocephalic. EYES: Pupils equal and round. No scleral icterus. No injection or drainage. ENT: No nasal bleeding or discharge. Mucous membranes pink and moist. NECK: Trachea midline. No JVD. CARDIOVASCULAR: Regular rate and rhythm.no pauses at present RESPIRATORY: No accessory muscle use. Clear to auscultation. Breath sounds equal bilaterally. GASTROINTESTINAL: Abdomen soft, non-tender, nondistended. Hepatic and splenic margins not palpable.obese MUSCULOSKELETAL: Extremities without clubbing, cyanosis, or edema. No obvious deformities. NEUROLOGICAL: Awake and alert. No obvious cranial nerve deficits. Motor grossly within normal limits. Five out of 5 muscle strength in the arms and legs. Normal speech. PSYCHIATRIC: Appropriate mood and affect; insight and judgment normal. Medications and IVs Inpatient Medications Acetaminophen (Tylenol) 650 mg Q6H PRN PO FOR FEVER >101F Last administered on 02/11/17 09:20; Start 02/10/17 at 13:30 Acetaminophen/ Hydrocodone Bitart ([place] 5-325 Mg) 1 tab Q4H PRN PO PAIN SCALE 1 TO 5 Last administered on 02/14/17 08:38; Start 02/10/17 at 13:30 Albuterol Sulfate (Albuterol Neb) 2.5 mg Q2HR NEB PRN INH SOB/WHEEZING; Start 02/10/17 at 13:30 Bisacodyl (Dulcolax Supp) 10 mg DAILY PRN RECTAL SEVERE CONSITIPATION; Start at 13:30 Calcium Gluconate 1 gm 1 gm ONCE ONCE IV PUSH Last administered on 02/10/17 10:40; Start 02/10/17 at 10:45; Stop 02/10/17 at 10:46; Status DC Chlorhexidine Gluconate (Chlorhexidine 2% Cloth) 3 pack UNSCH PRN TOP HYGIENIC CARE; Start 02/10/17 at 13:30 Dopamine HCl/ Dextrose (DOPamine INJ PREMIX) 500 ml @ 0 mls/hr TITRATE IV Last administered on 02/11/17 16:53; Start 02/10/17 at 11:00 Gabapentin 400 mg 400 mg HS PO Last administered on 02/13/17 21:03; Start at 21:00 Heparin Sodium/ Dextrose (Heparin-D5W Inj) 250 ml @ 0 mls/hr TITRATE IV Last administered on 02/14/17 05:59; Start 02/11/17 at 12:45 Lactulose (Lactulose Liq) 30 ml DAILY PRN PO SEVERE CONSITIPATION; Start at 13:30 Levothyroxine Sodium (Synthroid) 125 mcg DAILY@06 PO Last administered on 05:58; Start 02/12/17 at 06:00 Levothyroxine Sodium 50 mcg 50 mcg DAILY@06 PO Last administered on 02/13/17 06 :10; Start 02/12/17 at 06:00; Status Hold Magnesium Hydroxide (Milk Of Magnesia Liq) 30 ml Q12H PRN PO MILD - MODERATE CONSTIPATION; Start 02/10/17 at 13:30 Magnesium Sulfate/ Dextrose (Magnesium Sulfate 1 Gm Premix) 100 ml @ 100 mls/ hr Q1H IV Last administered on 02/12/17 16:19; Start 02/12/17 at 14:00; Stop 02/12/17 at 15:59; Status DC Miscellaneous Information 1 Q361D XX ; Start 02/10/17 at 13:30 Morphine Sulfate (Morphine Inj) 2 mg Q2H PRN IV PAIN SCALE 6 TO 10 Last administered on 02/13/17 15:02; Start 02/10/17 at 13:30 Multivitamins (Theragran) 1 tab DAILY PO Last administered on 02/14/17 08:31; Start 02/11/17 at 09:00 Multivitamins 10 ml/Thiamine HCl 100 mg/Folic Acid 1 mg/Sodium Chloride 511.2 ml @ 125 mls/hr DAILY IV Last administered on 02/14/17 08:36; Start 02/11/17 at 09:00 Ondansetron HCl (Zofran Inj) 4 mg Q6H PRN IV NAUSEA OR VOMITING Last administered on 02/13/17 08:08; Start 02/10/17 at 13:30 Pantoprazole Sodium (Protonix Inj) 40 mg DAILY IV Last administered on 08:32; Start 02/11/17 at 09:00 Polyethylene Glycol (Miralax) 17 gm DAILY PO Last administered on 02/14/17 08: 32; Start 02/13/17 at 09:00 Potassium Chloride (KCl) 10 meq ONCE ONCE PO Last administered on 02/12/17 14: 59; Start 02/12/17 at 13:30; Stop 02/12/17 at 13:43; Status DC Pravastatin Sodium 20 mg 20 mg DAILY PO Last administered on 02/14/17 08:32; Start 02/11/17 at 09:00 Senna/Docusate Sodium (Raquel-Colace) 1 tab BID PO Last administered on 02/14/17 08:32; Start 02/10/17 at 21:00 Sennosides (Senokot) 17.2 mg Q12H PRN PO MODERATE - SEVERE CONSTIPATION; Start 02/10/17 at 13:30 Sodium Chloride 500 ml @ 250 mls/hr Q2H IV Last administered on 02/11/17 12:40 ; Start 02/11/17 at 13:00; Stop 02/11/17 at 14:59; Status DC Sodium Chloride (1/2 NS 1000 ml Inj) 1,000 ml @ 84 mls/hr [id number] IV Last administered on 02/13/17 06:09; Start 02/10/17 at 15:00; Stop 02/13/17 at 08:30; Status DC Sodium Chloride (NS 1000 ml Inj) 1,000 ml @ 84 mls/hr [id number] IV ; Start at 13:19; Stop 02/10/17 at 13:51; Status DC Sodium Chloride (NS Flush) UNSCH PRN IVF SEE PROTOCOL; Start 02/10/17 at 18:15 Sodium Chloride 2 ml 2 ml UNSCH PRN IVF FLUSH AFTER USING IV ACCESS; Start at 10:15; Stop 02/10/17 at 13:40; Status DC Terbutaline Sulfate (Brethine Inj) 1 mg UNSCH PRN SQ For Extravasation; Start 02/10/17 at 10:45 Assessment and Plan Problem List: (1) Bradycardia by electrocardiogram Status: Acute Plan: await air crew officer decision re pacer (2) Syncope and collapse Status: Acute Plan: probably secondary to bradycardia (3) Fracture of pubic ramus Status: Acute Plan: stable for now will have PT begin rom Assessment and Plan may require pacemaker Discussed Condition With patient Discharge Planning home Problem Qualifiers (1) Fracture of pubic ramus: Gaudencio Bonilla DO Feb 14, 2017 12:12
[2017-02-14] MEDS: MORPHINE SULFATE 4 MG/ML INJ IV PRN ×2 (14:02→20:08)
[2017-02-14] MEDS: CALCIUM/VITAMIN D 250 MG/125 U TAB PO SCH (19:47)
[2017-02-14] MEDS: GABAPENTIN 400 MG CAP PO SCH (19:48)
[2017-02-14] MEDS: ONDANSETRON HCL 4 MG/2 ML VIAL IV PRN (23:04)
[2017-02-15] VITALS (21 sets, daily range): BP systolic 121–152; BP diastolic 57–81; PULSE 55–110; RESP 18–41; TEMP 97.7–98.8; O2SAT 81–94
[2017-02-15] MEDS: CHLORHEXIDINE GLUCONATE 2 % 1 PACK (2 CLOTHS) TOP SCH (04:00)
[2017-02-15 06:31] LABS: APTT (PATIENT) 50.9 SEC (24.3-30.1); INTERNATIONAL NORMALIZED RATIO 1.1 RATIO; PROTHROMBIN TIME - PATIENT 11.7 SEC (9.8-11.6)
[2017-02-15] MEDS: LEVOTHYROXINE SODIUM 125 MCG TAB PO SCH (06:32)
[2017-02-15] MEDS: SODIUM CHLORIDE 0.9% FLUSH 10 ML FLUSH IVF SCH (07:53)
[2017-02-15] MEDS: SODIUM CHLORIDE 0.9% FLUSH 10 ML FLUSH IV FLUSH SCH ×2 (07:53→20:51)
[2017-02-15] MEDS: PANTOPRAZOLE SODIUM 40 MG VIAL IV SCH (07:54)
[2017-02-15] MEDS: CALCIUM/VITAMIN D 250 MG/125 U TAB PO SCH ×2 (07:55→20:51)
[2017-02-15] MEDS: POLYETHYLENE GLYCOL 17 GM PKG PO SCH (07:55)
[2017-02-15] MEDS: DOCUSATE SODIUM 50 MG/SENNA 8.6 MG TAB PO SCH ×2 (07:55→20:53)
[2017-02-15] MEDS: PRAVASTATIN SOD 20 MG TAB PO SCH (07:55)
[2017-02-15] MEDS: MULTIVITAMIN TAB PO SCH (07:55)
[2017-02-15] MEDS: MULTIVITAMIN INJ 10 ML, THIAMINE INJ 100 MG, FOLIC ACID INJ 1 MG in SODIUM CHLORID 0.9%... IV SCH (07:56)
--- NOTE | 2017-02-15 09:16 | HHI.PR ---
Subjective Remarks Patient denies any chest pain or SOB. VSS Objective Vital Signs Date Time Temp Pulse Resp B/P Pulse Ox O2 Delivery O2 Flow Rate FiO2 02/15/17 06:00 68 02/15/17 04:00 98.3 66 24 130/75 94 02/15/17 04:00 66 02/15/17 02:00 71 02/15/17 00:03 20 02/15/17 00:00 76 02/15/17 00:00 98.4 76 24 144/70 90 02/14/17 22:00 72 02/14/17 20:30 94 21 02/14/17 20:13 20 02/14/17 20:00 63 02/14/17 20:00 99.0 63 25 155/79 91 02/14/17 18:00 74 02/14/17 16:00 71 02/14/17 16:00 98.5 67 22 99/53 95 02/14/17 14:00 58 02/14/17 12:00 98.8 55 25 101/58 94 02/14/17 12:00 70 02/14/17 11:08 91 21 02/14/17 10:00 72 I/O 02/14/17 02/14/17 02/14/17 02/15/17 02/15/17 02/15/17 07:00 15:00 23:00 07:00 15:00 23:00 Intake Total 88 ml 1330 ml 610 ml 134 ml Output Total 1000 ml 1700 ml 400 ml 850 ml Balance -912 ml -370 ml 210 ml -716 ml Intake Oral 720 ml 480 ml IV Total 88 ml 610 ml 130 ml 134 ml Output Urine Total 1000 ml 1700 ml 400 ml 850 ml # Bowel Movements 0 Result Diagram: 02/14/17 0602/14/17 06 Procedures Pacemaker planned for today Objective Remarks GENERAL: Alert and oriented SKIN: Warm and dry. HEAD: Normocephalic. EYES: No scleral icterus. No injection or drainage. NECK: Supple, trachea midline. No JVD or lymphadenopathy. CARDIOVASCULAR: Regular rate and rhythm without murmurs, gallops, or rubs. RESPIRATORY: Breath sounds equal bilaterally. No accessory muscle use. GASTROINTESTINAL: Abdomen soft, non-tender, nondistended. MUSCULOSKELETAL: No cyanosis, or edema. BACK: Nontender without obvious deformity. No CVA tenderness. Medications and IVs Current Medications Medications (Trade) Dose Ordered Sig/Karan Route Start Time Stop Time Status Last Admin (DOPamine INJ PREMIX) 500 ml @ 0 mls/hr TITRATE IV 02/10/17 11:00 02/11/17 16:53 (Brethine Inj) 1 mg UNSCH PRN SQ 02/10/17 10:45 (NS Flush) 2 ml UNSCH PRN IV FLUSH 02/10/17 13:30 (NS Flush) 2 ml BID IV FLUSH 02/10/17 21:00 02/15/17 07:53 (Tylenol) 650 mg Q6H PRN PO 02/10/17 13:30 02/11/17 09:20 ([place] 5-325 Mg) 1 tab Q4H PRN PO 02/10/17 13:30 02/14/17 23:03 (Morphine Inj) 2 mg Q2H PRN IV 02/10/17 13:30 02/14/17 20:08 (Protonix Inj) 40 mg DAILY IV 02/11/17 09:00 02/15/17 07:54 (Zofran Inj) 4 mg Q6H PRN IV 02/10/17 13:30 02/14/17 23:04 Miscellaneous Information 1 Q361D XX 02/10/17 13:30 (Chlorhexidine 2% Cloth) 3 pack Taper DAILY@04 TOP 02/11/17 04:00 02/07/18 03:59 02/15/17 04:00 (Chlorhexidine 2% Cloth) 3 pack UNSCH PRN TOP 02/10/17 13:30 (Raquel-Colace) 1 tab BID PO 02/10/17 21:00 02/15/17 07:55 (Milk Of Magnesia Liq) 30 ml Q12H PRN PO 02/10/17 13:30 (Senokot) 17.2 mg Q12H PRN PO 02/10/17 13:30 (Dulcolax Supp) 10 mg DAILY PRN RECTAL 02/10/17 13:30 (Lactulose Liq) 30 ml DAILY PRN PO 02/10/17 13:30 (Theragran) 1 tab DAILY PO 02/11/17 09:00 02/15/17 07:55 Pravastatin Sodium 20 mg 20 mg DAILY PO 02/11/17 09:00 02/15/17 07:55 (Mvi-12 Inj/ Thiamine Inj/ Folvite Inj/NS 500 ml Inj) 511.2 ml @ 125 mls/hr DAILY IV 02/11/17 09:00 02/15/17 07:56 (NS Flush) DAILY IVF 02/11/17 09:00 02/15/17 07:53 (NS Flush) UNSCH PRN IVF 02/10/17 18:15 (Synthroid) 125 mcg DAILY@06 PO 02/12/17 06:00 02/15/17 06:32 Levothyroxine Sodium 50 mcg 50 mcg DAILY@06 PO 02/12/17 06:00 Hold 02/13/17 06:10 (Heparin-D5W Inj) 250 ml @ 0 mls/hr TITRATE IV 02/11/17 12:45 02/14/17 19:51 (Neurontin) 400 mg HS PO 02/12/17 21:00 02/14/17 19:48 (Miralax) 17 gm DAILY PO 02/13/17 09:00 02/14/17 08:32 (Oscal-D 250-125) 250 mg Q12HR PO 02/14/17 21:00 02/15/17 07:55 Assessment and Plan Problem List: (1) Bradycardia Status: Acute Plan: HR 68 this AM. Scheduled for PPM today (2) Hypotension Status: Acute Plan: B/P 130/75 hemodynamically stable off dopamine (3) Closed fracture of pubic ramus Status: Acute Plan: Conservative treatment recommended only. PT ordered and pain medication as needed (4) Dyslipidemia Status: Acute Plan: Continue statin (5) Obstructive sleep apnea Status: Acute Plan: CPAP nightly (6) Hypothyroidism Status: Acute Plan: continue replacement thyroid panel checked on admission (7) GERD (gastroesophageal reflux disease) Status: Acute Plan: Continue PPI patient is asymptomatic Assessment and Plan Assessment and plan discussed with Dr. Bonilla Discussed Condition With Nursing Discharge Planning Discharge home with [facility] Physician Attestation I and the MANAGER GROUP have both examined this patient and reviewed this note and I agree with these findings and plan of care. Gaudencio Bonilla DO Problem Qualifiers (1) Hypotension: Qualified Code: I95.9 - Hypotension, unspecified hypotension type (2) Closed fracture of pubic ramus: Qualified Code: S32.591A - Closed fracture of pubic ramus, right, initial encounter (3) Hypothyroidism: Qualified Code: E03.9 - Hypothyroidism, unspecified type Cassandra Gaxiola Feb 15, 2017 09:16
[2017-02-15] MEDS: ACETAMINOPHEN/HYDROcodone 325 MG/5 MG TAB PO PRN ×2 (10:25→16:10)
[2017-02-15] MEDS: HEPARIN-D5W INJ 250 ML IV SCH (10:26)
--- NOTE | 2017-02-15 13:25 | PD.CARD.PN ---
Subjective Subjective Remarks The patient denies CP, SOB or palpitations. Having some episodes of dizziness not associated with low blood pressure or arrhythmia. HR 60s currently. He has been off dopamine for three days. PPM canceled today due to heparin. Objective Medications Current Medications Medications (Trade) Dose Ordered Sig/Karan Route Start Time Stop Time Status Last Admin (DOPamine INJ PREMIX) 500 ml @ 0 mls/hr TITRATE IV 02/10/17 11:00 02/11/17 16:53 (Brethine Inj) 1 mg UNSCH PRN SQ 02/10/17 10:45 (NS Flush) 2 ml UNSCH PRN IV FLUSH 02/10/17 13:30 (NS Flush) 2 ml BID IV FLUSH 02/10/17 21:00 02/15/17 07:53 (Tylenol) 650 mg Q6H PRN PO 02/10/17 13:30 02/11/17 09:20 ([place] 5-325 Mg) 1 tab Q4H PRN PO 02/10/17 13:30 02/15/17 10:25 (Morphine Inj) 2 mg Q2H PRN IV 02/10/17 13:30 02/14/17 20:08 (Protonix Inj) 40 mg DAILY IV 02/11/17 09:00 02/15/17 07:54 (Zofran Inj) 4 mg Q6H PRN IV 02/10/17 13:30 02/14/17 23:04 Miscellaneous Information 1 Q361D XX 02/10/17 13:30 (Chlorhexidine 2% Cloth) 3 pack Taper DAILY@04 TOP 02/11/17 04:00 02/07/18 03:59 02/15/17 04:00 (Chlorhexidine 2% Cloth) 3 pack UNSCH PRN TOP 02/10/17 13:30 (Milk Of Magnesia Liq) 30 ml Q12H PRN PO 02/10/17 13:30 (Senokot) 17.2 mg Q12H PRN PO 02/10/17 13:30 (Dulcolax Supp) 10 mg DAILY PRN RECTAL 02/10/17 13:30 (Lactulose Liq) 30 ml DAILY PRN PO 02/10/17 13:30 (Theragran) 1 tab DAILY PO 02/11/17 09:00 02/15/17 07:55 Pravastatin Sodium 20 mg 20 mg DAILY PO 02/11/17 09:00 02/15/17 07:55 (Mvi-12 Inj/ Thiamine Inj/ Folvite Inj/NS 500 ml Inj) 511.2 ml @ 125 mls/hr DAILY IV 02/11/17 09:00 02/15/17 07:56 (NS Flush) DAILY IVF 02/11/17 09:00 02/15/17 07:53 (NS Flush) UNSCH PRN IVF 02/10/17 18:15 (Synthroid) 125 mcg DAILY@06 PO 02/12/17 06:00 02/15/17 06:32 Levothyroxine Sodium 50 mcg 50 mcg DAILY@06 PO 02/12/17 06:00 Hold 02/13/17 06:10 (Heparin-D5W Inj) 250 ml @ 0 mls/hr TITRATE IV 02/11/17 12:45 02/15/17 10:26 (Neurontin) 400 mg HS PO 02/12/17 21:00 02/14/17 19:48 (Miralax) 17 gm DAILY PO 02/13/17 09:00 02/14/17 08:32 (Oscal-D 250-125) 250 mg Q12HR PO 02/14/17 21:00 02/15/17 07:55 (Raquel-Colace) 2 tab DAILY PO 02/15/17 21:00 Vital Signs / I&O Vital Signs Date Time Temp Pulse Resp B/P Pulse Ox O2 Delivery O2 Flow Rate FiO2 02/15/17 12:00 62 02/15/17 12:00 97.7 62 20 132/65 92 02/15/17 10:00 64 02/15/17 08:00 98.8 65 18 121/76 92 02/15/17 08:00 65 02/15/17 06:00 68 02/15/17 04:00 98.3 66 24 130/75 94 02/15/17 04:00 66 02/15/17 02:00 71 02/15/17 00:03 20 02/15/17 00:00 76 02/15/17 00:00 98.4 76 24 144/70 90 02/14/17 22:00 72 02/14/17 20:30 94 21 7/4/17 20:13 20 02/14/17 20:00 63 02/14/17 20:00 99.0 63 25 155/79 91 02/14/17 18:00 74 02/14/17 16:00 71 02/14/17 16:00 98.5 67 22 99/53 95 02/14/17 14:00 58 I/O 02/14/17 02/14/17 02/14/17 02/15/17 02/15/17 02/15/17 07:00 15:00 23:00 07:00 15:00 23:00 Intake Total 88 ml 1330 ml 610 ml 134 ml Output Total 1000 ml 1700 ml 400 ml 850 ml Balance -912 ml -370 ml 210 ml -716 ml Intake Oral 720 ml 480 ml IV Total 88 ml 610 ml 130 ml 134 ml Output Urine Total 1000 ml 1700 ml 400 ml 850 ml # Bowel Movements 0 Physical Exam GENERAL: Obese male in ICU, no distress SKIN: Warm and dry. HEAD: Normocephalic. EYES: No scleral icterus. No injection or drainage. NECK: Supple, trachea midline. No JVD or lymphadenopathy. CARDIOVASCULAR: Regular rate and rhythm without murmurs, gallops, or rubs. RESPIRATORY: Breath sounds equal bilaterally. No accessory muscle use. nasal cannula GASTROINTESTINAL: Abdomen soft, non-tender, nondistended. MUSCULOSKELETAL: No cyanosis, or edema. BACK: Nontender without obvious deformity. No CVA tenderness. Laboratory Laboratory Tests Test 02/15/17 06:00 Prothrombin Time 11.7 SEC Prothromb Time International 1.1 RATIO Ratio Activated Partial 50.9 SEC Thromboplast Time Assessment and Plan Assessment and Plan ASSESSMENT Traumatic near syncopal fall resulting in right superior pubic ramus fracture. Hypotensive and bradycardiac on admission. 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 Recurrent near syncopal episodes the past two weeks History of atrial flutter on Xarelto prior to admission, currently on heparin. Hyperlipidemia PLAN: PPM canceled today. Will plan for PPM tomorrow at 1330. Will stop heparin tonight. Resume Xarelto Monday. Assessment and plan discussed with Viktoria Brown Feb 15, 2017 13:25
[2017-02-15] MEDS: GABAPENTIN 400 MG CAP PO SCH (20:51)
[2017-02-16] VITALS (24 sets, daily range): BP systolic 113–160; BP diastolic 58–86; PULSE 58–73; RESP 19–33; TEMP 97.7–98.8; O2SAT 90–97
[2017-02-16] MEDS: ACETAMINOPHEN/HYDROcodone 325 MG/5 MG TAB PO PRN ×4 (03:47→21:22)
[2017-02-16] MEDS: CHLORHEXIDINE GLUCONATE 2 % 1 PACK (2 CLOTHS) TOP SCH ×2 (03:47→21:04)
[2017-02-16] MEDS: LEVOTHYROXINE SODIUM 125 MCG TAB PO SCH (04:13)
[2017-02-16 04:51] LABS: AUTOMATED NEUTROPHIL # 3.4 TH/MM3 (1.8-7.7); BASOPHIL % 0.4 % (0.0-2.0); EOSINOPHIL # 0.1 TH/MM3 (0-0.4); EOSINOPHIL % 1.4 % (0.0-4.0); HEMATOCRIT 32.3 % (39.0-51.0); HEMO FLAGS DIFF FINAL; LYMPH % 33.6 % (9.0-44.0); LYMPHOCYTE # 2.2 TH/MM3 (1.0-4.8); MEAN CELL VOLUME 99.1 FL (80.0-100.0); MEAN CORPUSCULAR HEMOGLOBIN 33.1 PG (27.0-34.0); MEAN CORPUSCULAR HGB CONC 33.4 % (32.0-36.0); MONO % 11.8 % (0.0-8.0); NEUT % 52.8 % (16.0-70.0); PLATELET COUNT 167 TH/MM3 (150-450); RED BLOOD COUNT 3.26 MIL/MM3 (4.50-5.90); RED CELL DISTRIBUTION WIDTH 14.7 % (11.6-17.2); WHITE BLOOD COUNT 6.4 TH/MM3 (4.0-11.0)
[2017-02-16 05:07] LABS: BICARBONATE 29.6 MEQ/L (21.0-32.0); POTASSIUM 3.6 MEQ/L (3.5-5.1)
[2017-02-16] MEDS: MULTIVITAMIN INJ 10 ML, THIAMINE INJ 100 MG, FOLIC ACID INJ 1 MG in SODIUM CHLORID 0.9%... IV SCH (08:20)
[2017-02-16] MEDS: PANTOPRAZOLE SODIUM 40 MG VIAL IV SCH (08:21)
[2017-02-16] MEDS: PRAVASTATIN SOD 20 MG TAB PO SCH (08:21)
[2017-02-16] MEDS: SODIUM CHLORIDE 0.9% FLUSH 10 ML FLUSH IVF SCH (08:21)
[2017-02-16] MEDS: MULTIVITAMIN TAB PO SCH (08:21)
[2017-02-16] MEDS: SODIUM CHLORIDE 0.9% FLUSH 10 ML FLUSH IV FLUSH SCH ×2 (08:21→21:04)
[2017-02-16] MEDS: CALCIUM/VITAMIN D 250 MG/125 U TAB PO SCH ×2 (08:22→21:04)
[2017-02-16] MEDS: POLYETHYLENE GLYCOL 17 GM PKG PO SCH (08:22)
[2017-02-16] MEDS: DOCUSATE SODIUM 50 MG/SENNA 8.6 MG TAB PO SCH (08:23)
--- NOTE | 2017-02-16 09:29 | HHI.PR ---
Subjective Remarks Patient denies any chest pain or SOB. VSS and remains afebrile. PPM planned for today Objective Vital Signs Date Time Temp Pulse Resp B/P Pulse Ox O2 Delivery O2 Flow Rate FiO2 02/16/17 06:00 68 02/16/17 05:01 67 02/16/17 05:00 67 02/16/17 04:48 25 02/16/17 04:01 70 30 118/65 92 02/16/17 04:01 70 02/16/17 04:00 67 02/16/17 04:00 98.5 67 25 90 02/16/17 03:00 72 02/16/17 03:00 72 20 134/75 91 02/16/17 02:00 73 29 135/72 92 02/16/17 02:00 73 02/16/17 01:00 65 02/16/17 01:00 65 27 138/69 91 02/16/17 00:00 98.7 58 25 135/73 97 02/16/17 00:00 58 02/15/17 23:00 60 26 140/70 89 02/15/17 23:00 60 02/15/17 22:00 71 02/15/17 22:00 71 32 131/72 89 02/15/17 21:00 102 02/15/17 21:00 102 36 128/78 81 02/15/17 20:56 92 21 02/15/17 20:00 98.6 63 26 125/65 94 02/15/17 20:00 63 02/15/17 19:01 64 26 121/57 90 02/15/17 19:00 66 27 91 02/15/17 18:01 66 41 147/81 90 02/15/17 18:00 68 02/15/17 18:00 70 32 88 02/15/17 17:01 58 29 152/74 93 02/15/17 17:00 64 20 93 02/15/17 16:00 55 02/15/17 16:00 98.2 55 19 121/70 93 02/15/17 14:00 69 02/15/17 12:00 62 02/15/17 12:00 97.7 62 20 132/65 92 02/15/17 11:00 94 21 02/15/17 10:00 64 I/O 7/5/17 702/15/17 02/16/17 02/16/17 02/16/17 07:00 15:00 23:00 07:00 15:00 23:00 Intake Total 134 ml 1089 ml 371 ml 120 ml Output Total 850 ml 1050 ml 905 ml 1075 ml Balance -716 ml 39 ml -534 ml -955 ml Intake Oral 480 ml 240 ml 120 ml IV Total 134 ml 609 ml 131 ml Output Urine Total 850 ml 1050 ml 905 ml 1075 ml Result Diagram: 02/16/17 0340 02/16/17 0340 Procedures Pacemaker planned for today Objective Remarks GENERAL: Alert and oriented SKIN: Warm and dry. HEAD: Normocephalic. EYES: No scleral icterus. No injection or drainage. NECK: Supple, trachea midline. No JVD or lymphadenopathy. CARDIOVASCULAR: Regular rate and rhythm without murmurs, gallops, or rubs. RESPIRATORY: Breath sounds equal bilaterally. No accessory muscle use. GASTROINTESTINAL: Abdomen soft, non-tender, nondistended. MUSCULOSKELETAL: No cyanosis, or edema. BACK: Nontender without obvious deformity. No CVA tenderness. Medications and IVs Current Medications Medications (Trade) Dose Ordered Sig/Karan Route Start Time Stop Time Status Last Admin (DOPamine INJ PREMIX) 500 ml @ 0 mls/hr TITRATE IV 02/10/17 11:00 02/11/17 16:53 (Brethine Inj) 1 mg UNSCH PRN SQ 02/10/17 10:45 (NS Flush) 2 ml UNSCH PRN IV FLUSH 02/10/17 13:30 (NS Flush) 2 ml BID IV FLUSH 02/10/17 21:00 02/16/17 08:21 (Tylenol) 650 mg Q6H PRN PO 02/10/17 13:30 02/11/17 09:20 ([place] 5-325 Mg) 1 tab Q4H PRN PO 02/10/17 13:30 02/16/17 08:26 (Morphine Inj) 2 mg Q2H PRN IV 02/10/17 13:30 02/14/17 20:08 (Protonix Inj) 40 mg DAILY IV 02/11/17 09:00 02/16/17 08:21 (Zofran Inj) 4 mg Q6H PRN IV 02/10/17 13:30 02/14/17 23:04 Miscellaneous Information 1 Q361D XX 02/10/17 13:30 (Chlorhexidine 2% Cloth) Taper DAILY@04 TOP 02/11/17 04:00 02/07/18 03:59 02/16/17 03:47 (Chlorhexidine 2% Cloth) 3 pack UNSCH PRN TOP 02/10/17 13:30 (Milk Of Magnesia Liq) 30 ml Q12H PRN PO 02/10/17 13:30 (Senokot) 17.2 mg Q12H PRN PO 02/10/17 13:30 (Dulcolax Supp) 10 mg DAILY PRN RECTAL 02/10/17 13:30 (Lactulose Liq) 30 ml DAILY PRN PO 02/10/17 13:30 (Theragran) 1 tab DAILY PO 02/11/17 09:00 02/16/17 08:21 Pravastatin Sodium 20 mg 20 mg DAILY PO 02/11/17 09:00 02/16/17 08:21 (Mvi-12 Inj/ Thiamine Inj/ Folvite Inj/NS 500 ml Inj) 511.2 ml @ 125 mls/hr DAILY IV 02/11/17 09:00 02/16/17 08:20 (NS Flush) DAILY IVF 02/11/17 09:00 02/16/17 08:21 (NS Flush) UNSCH PRN IVF 02/10/17 18:15 (Synthroid) 125 mcg DAILY@06 PO 02/12/17 06:00 02/16/17 04:13 Levothyroxine Sodium 50 mcg 50 mcg DAILY@06 PO 02/12/17 06:00 Hold 02/13/17 06:10 (Heparin-D5W Inj) 250 ml @ 0 mls/hr TITRATE IV 02/11/17 12:45 02/15/17 10:26 (Neurontin) 400 mg HS PO 02/12/17 21:00 02/15/17 20:51 (Miralax) 17 gm DAILY PO 02/13/17 09:00 02/14/17 08:32 (Oscal-D 250-125) 250 mg Q12HR PO 02/14/17 21:00 02/16/17 08:22 (Raquel-Colace) 2 tab DAILY PO 02/15/17 21:00 02/16/17 08:23 Assessment and Plan Problem List: (1) Bradycardia Status: Acute Plan: HR has remained in the 60's. Scheduled for PPM today (2) Hypotension Status: Acute Plan: B/P stable hemodynamically stable off dopamine (3) Closed fracture of pubic ramus Status: Acute Plan: Conservative treatment recommended only. PT ordered and pain medication as needed (4) Dyslipidemia Status: Acute Plan: Continue statin (5) Obstructive sleep apnea Status: Acute Plan: CPAP nightly (6) Hypothyroidism Status: Acute Plan: continue replacement thyroid panel checked on admission (7) GERD (gastroesophageal reflux disease) Status: Acute Plan: Continue PPI patient is asymptomatic Assessment and Plan Assessment and plan discussed with Dr. Bonilla Discussed Condition With Nursing Discharge Planning Plan to discharge to rehab depending on patients progress with PT Physician Attestation I and the CREDIT CHECKER have both examined this patient and reviewed this note and I agree with these findings and plan of care. Gaudencio Bonilla DO Problem Qualifiers (1) Hypotension: Qualified Code: I95.9 - Hypotension, unspecified hypotension type (2) Closed fracture of pubic ramus: Qualified Code: S32.591A - Closed fracture of pubic ramus, right, initial encounter (3) Hypothyroidism: Qualified Code: E03.9 - Hypothyroidism, unspecified type Cassandra Gaxiola CREDIT CHECKER Feb 16, 2017 09:29
[2017-02-16] MEDS ORDERED: VANCOMYCIN HCL 1000 MG VIAL ONE (13:46)
[2017-02-16] MEDS ORDERED: ceFAZolin INJ 1,000 MG VIAL ONE (13:47)
[2017-02-16] MEDS ORDERED: SODIUM CHLORIDE 0.9% INJ 100 ML ONE (13:48)
[2017-02-16] MEDS ORDERED: SODIUM CHLOR 0.9% 250 ML INJ 250 ML ONE (13:52)
[2017-02-16] MEDS ORDERED: ONDANSETRON HCL 4 MG/2 ML VIAL IV PUSH ONE (14:46)
[2017-02-16] MEDS ORDERED: SODIUM CHLORID 0.9% 500 ML BAG IV ONE (14:46)
[2017-02-16] MEDS ORDERED: PHENYLEPHRINE HCL 10 MG/ML VIAL IV ONE (14:46)
[2017-02-16] MEDS ORDERED: PROPOFOL 200 MG/20 ML AMP IV ONE (14:46)
[2017-02-16] MEDS ORDERED: BACITRACIN OINT 0.9 GM PKT TOP PRN (16:15)
[2017-02-16] MEDS ORDERED: ACETAMINOPHEN/CODEINE 300 MG/30 MG TAB PO PRN (16:15)
[2017-02-16] MEDS ORDERED: ONDANSETRON HCL 4 MG/2 ML VIAL IV PRN (16:15)
[2017-02-16] MEDS ORDERED: CHLORHEXIDINE GLUCONATE 2 % 1 PACK (2 CLOTHS) TOPICAL SCH (16:15)
--- NOTE | 2017-02-16 16:46 | RADRPT ---
EXAM DATE/TIME: 02/16/2017 16:15 [place] COMPARISON: CHEST SINGLE AP, February 10, 2017, 18:26. INDICATIONS : Evaluate for pneumothorax post pacemaker MEDICAL HISTORY : None. SURGICAL HISTORY : Central line palcement ENCOUNTER: Subsequent ACUITY: 4 - 6 days PAIN SCORE: 0/10 LOCATION: chest FINDINGS: There is a stable right IJ central line. Interval placement of 2-lead pacemaker with leads projecting over the right atrium with the second lead obscured. There is no significant pneumothorax. Cardiomed iastinal contours are stable. Remainder of the exam is unchanged. CONCLUSION: 1. Status post placement of dual-lead pacemaker without evidence for pneumothorax. Manjinder Hopkins MD on February 16, 2017 at 16:42 Board Certified Radiologist. This report was verified electronically.
[2017-02-16] MEDS ORDERED: DO NOT ADM ANY ANTICOAGULANT DRUGS PRN (17:15)
[2017-02-16] MEDS: ceFAZolin 2 GM PREMIX 50 ML IV SCH (21:01)
[2017-02-16] MEDS: GABAPENTIN 400 MG CAP PO SCH (21:04)
[2017-02-17] VITALS (17 sets, daily range): BP systolic 110–155; BP diastolic 58–74; PULSE 63–75; RESP 23–38; TEMP 98.2–98.7; O2SAT 90–98
[2017-02-17] MEDS: ceFAZolin 2 GM PREMIX 50 ML IV SCH ×2 (04:02→11:41)
[2017-02-17] MEDS: LEVOTHYROXINE SODIUM 125 MCG TAB PO SCH (04:03)
[2017-02-17] MEDS: MORPHINE SULFATE 4 MG/ML INJ IV PRN (04:03)
[2017-02-17 04:20] LABS: AUTOMATED NEUTROPHIL # 4.2 TH/MM3 (1.8-7.7); BASOPHIL % 0.3 % (0.0-2.0); EOSINOPHIL # 0.1 TH/MM3 (0-0.4); EOSINOPHIL % 1.4 % (0.0-4.0); HEMATOCRIT 32.6 % (39.0-51.0); HEMO FLAGS DIFF FINAL; LYMPH % 30.3 % (9.0-44.0); LYMPHOCYTE # 2.2 TH/MM3 (1.0-4.8); MEAN CELL VOLUME 98.4 FL (80.0-100.0); MEAN CORPUSCULAR HEMOGLOBIN 33.3 PG (27.0-34.0); MEAN CORPUSCULAR HGB CONC 33.9 % (32.0-36.0); MONO % 10.8 % (0.0-8.0); NEUT % 57.2 % (16.0-70.0); PLATELET COUNT 181 TH/MM3 (150-450); RED BLOOD COUNT 3.31 MIL/MM3 (4.50-5.90); RED CELL DISTRIBUTION WIDTH 14.6 % (11.6-17.2); WHITE BLOOD COUNT 7.4 TH/MM3 (4.0-11.0)
[2017-02-17 04:42] LABS: BICARBONATE 29.5 MEQ/L (21.0-32.0); POTASSIUM 3.7 MEQ/L (3.5-5.1)
--- NOTE | 2017-02-17 07:05 | MP ---
cc: ARELY MCNEILL M.D., OTAKAR BIGA, LOUIS M. MD DATE OF SURGERY 02/16/2017 PROCEDURE Pacemaker implantation. 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 CONSENT A full, informed consent was obtained prior to the procedure. The risks of , bleeding, perforation, aspiration, pneumothorax, foreseen and unforeseen complications were reviewed. The patient fully appeared to understand the risks. PROCEDURE The patient prepped and draped in sterile fashion. The left infraclavicular area was carefully infiltrated with lidocaine using micropuncture technique with ultrasound. However, in this case the ultrasound was not helpful. Two guidewires were placed in the venous circulation. Using blunt, sharp and cautery dissection the pulse generator pocket was fashioned in the usual manner. Over the two guidewires two introducer sheaths were passed in venous circulation. The atrial and ventricular lead was passed in the venous circulation. Ventricular lead was placed in the right ventricular apex. Non-satisfactory sensing was noted and the apex of the lead was moved. The atrial lead was passed into the right atrial appendage. Excellent pacing and sensing parameters were noted in both chambers. Both leads were sewn down in the pectoralis fascia. Both leads were connected to their respective chambers with a pulse generator. The pulse generator was sewn down to the pectoralis fascia. Note that a single stick technique was used. Finally the pocket was flushed with vancomycin solution and the pocket was closed in three layers. CONCLUSION Successful placement of dual-chamber pacemaker. PLAN 1. We will plan to do a chest x-ray to rule out pneumothorax. 2. We will plan to discharge the patient tomorrow from a cardiac perspective. Arely Mcneill MD, CP,[facility] /4:11 PM /6:59 AM
[2017-02-17] MEDS: PANTOPRAZOLE SODIUM 40 MG VIAL IV SCH (08:26)
[2017-02-17] MEDS: CALCIUM/VITAMIN D 250 MG/125 U TAB PO SCH (08:26)
[2017-02-17] MEDS: MULTIVITAMIN TAB PO SCH (08:26)
[2017-02-17] MEDS: SODIUM CHLORIDE 0.9% FLUSH 10 ML FLUSH IV FLUSH SCH (08:26)
[2017-02-17] MEDS: DOCUSATE SODIUM 50 MG/SENNA 8.6 MG TAB PO SCH (08:26)
[2017-02-17] MEDS: PRAVASTATIN SOD 20 MG TAB PO SCH (08:26)
[2017-02-17] MEDS: POLYETHYLENE GLYCOL 17 GM PKG PO SCH (08:26)
[2017-02-17] MEDS: MULTIVITAMIN INJ 10 ML, THIAMINE INJ 100 MG, FOLIC ACID INJ 1 MG in SODIUM CHLORID 0.9%... IV SCH (08:51)
--- NOTE | 2017-02-17 09:49 | PD.CARD.PN ---
Subjective Subjective Remarks The patient denies chest pain, SOB, pain from device insertion site, or lower extremity edema. Primary complaint is frequent belching. Objective Medications Current Medications Medications (Trade) Dose Ordered Sig/Karan Route Start Time Stop Time Status Last Admin (DOPamine INJ PREMIX) 500 ml @ 0 mls/hr TITRATE IV 02/10/17 11:00 02/11/17 16:53 (Brethine Inj) 1 mg UNSCH PRN SQ 02/10/17 10:45 (NS Flush) 2 ml UNSCH PRN IV FLUSH 02/10/17 13:30 (NS Flush) 2 ml BID IV FLUSH 02/10/17 21:00 02/17/17 08:26 (Tylenol) 650 mg Q6H PRN PO 02/10/17 13:30 02/11/17 09:20 ([place]ano 5-325 Mg) 1 tab Q4H PRN PO 02/10/17 13:30 02/16/17 21:22 (Morphine Inj) 2 mg Q2H PRN IV 02/10/17 13:30 02/17/17 04:03 (Protonix Inj) 40 mg DAILY IV 02/11/17 09:00 02/17/17 08:26 (Zofran Inj) 4 mg Q6H PRN IV 02/10/17 13:30 02/14/17 23:04 Miscellaneous Information 1 Q361D XX 02/10/17 13:30 (Chlorhexidine 2% Cloth) Taper DAILY@04 TOP 02/11/17 04:00 02/07/18 03:59 02/16/17 21:04 (Chlorhexidine 2% Cloth) 3 pack UNSCH PRN TOP 02/10/17 13:30 (Milk Of Magnesia Liq) 30 ml Q12H PRN PO 02/10/17 13:30 (Senokot) 17.2 mg Q12H PRN PO 02/10/17 13:30 (Dulcolax Supp) 10 mg DAILY PRN RECTAL 02/10/17 13:30 (Lactulose Liq) 30 ml DAILY PRN PO 02/10/17 13:30 (Theragran) 1 tab DAILY PO 02/11/17 09:00 02/17/17 08:26 Pravastatin Sodium 20 mg 20 mg DAILY PO 02/11/17 09:00 02/17/17 08:26 (Mvi-12 Inj/ Thiamine Inj/ Folvite Inj/NS 500 ml Inj) 511.2 ml @ 125 mls/hr DAILY IV 02/11/17 09:00 02/17/17 08:51 (NS Flush) DAILY IVF 02/11/17 09:00 02/16/17 08:21 (NS Flush) UNSCH PRN IVF 02/10/17 18:15 (Synthroid) 125 mcg DAILY@06 PO 02/12/17 06:00 02/17/17 04:03 Levothyroxine Sodium 50 mcg 50 mcg DAILY@06 PO 02/12/17 06:00 Hold 02/13/17 06:10 (Heparin-D5W Inj) 250 ml @ 0 mls/hr TITRATE IV 02/11/17 12:45 02/15/17 10:26 (Neurontin) 400 mg HS PO 02/12/17 21:00 02/16/17 21:04 (Miralax) 17 gm DAILY PO 02/13/17 09:00 02/17/17 08:26 (Oscal-D 250-125) 250 mg Q12HR PO 02/14/17 21:00 02/17/17 08:26 Senna/Docusate Sodium 2 tab 2 tab DAILY PO 02/15/17 21:00 02/17/17 08:26 (Ancef 2 Gm Premix) 50 ml @ 100 mls/hr Q8H IV 02/16/17 21:00 02/17/17 13:29 02/17/17 04:02 (Zofran Inj) 4 mg Q4H PRN IV 02/16/17 16:15 (Tylenol-Codeine #3) 1 tab Q4H PRN PO 02/16/17 16:15 (Bacitracin Oint Packet) 0.9 gm UNSCH PRN TOP 02/16/17 16:15 Miscellaneous Information ALL NURSING DEPARTME... UNSCH PRN .XX 02/16/17 17:15 02/17/17 17:14 Vital Signs / I&O Vital Signs Date Time Temp Pulse Resp B/P Pulse Ox O2 Delivery O2 Flow Rate FiO2 02/17/17 08:29 92 21 02/17/17 06:00 65 02/17/17 04:34 27 02/17/17 04:30 68 23 91 02/17/17 04:30 68 23 91 02/17/17 04:00 69 02/17/17 04:00 98.7 69 27 125/63 91 02/17/17 04:00 98.7 69 27 125/63 91 02/17/17 03:30 64 24 93 02/17/17 03:30 64 24 93 02/17/17 03:00 68 28 130/72 91 02/17/17 03:00 68 28 130/72 91 02/17/17 02:30 75 38 90 02/17/17 02:30 75 38 90 02/17/17 02:00 69 02/17/17 02:00 69 32 122/72 92 02/17/17 02:00 69 32 122/72 92 02/17/17 01:30 65 24 92 02/17/17 01:30 65 24 92 02/17/17 01:00 63 25 132/59 92 02/17/17 01:00 63 25 132/59 92 02/17/17 00:30 66 26 91 02/17/17 00:30 66 26 91 02/17/17 00:12 65 25 91 02/17/17 00:01 98.5 69 25 155/74 92 02/17/17 00:01 98.5 69 25 155/74 92 02/17/17 00:00 71 27 93 02/17/17 00:00 71 02/16/17 23:12 68 27 92 02/16/17 23:00 66 27 130/64 93 02/16/17 23:00 66 27 130/64 93 02/16/17 23:00 66 02/16/17 22:57 26 02/16/17 22:00 65 25 133/68 93 02/16/17 22:00 65 02/16/17 22:00 65 25 133/68 93 02/16/17 21:00 67 33 127/67 93 02/16/17 21:00 67 33 127/67 93 02/16/17 20:00 98.7 66 19 114/58 93 02/16/17 20:00 67 02/16/17 20:00 98.7 66 19 114/58 93 02/16/17 19:30 66 25 113/69 93 02/16/17 19:01 72 25 160/67 94 02/16/17 19:00 72 30 94 02/16/17 18:12 97.7 64 22 124/70 95 02/16/17 18:00 64 02/16/17 17:18 97.7 60 22 150/77 94 02/16/17 17:18 68 02/16/17 17:06 97.8 60 22 150/77 94 02/16/17 12:00 98.3 65 22 125/86 92 02/16/17 12:00 65 02/16/17 10:00 60 I/O 02/16/17 02/16/17 02/16/17 02/17/17 02/17/17 02/17/17 07:00 15:00 23:00 07:00 15:00 23:00 Intake Total 120 ml 495 ml 737 ml 351 ml Output Total 1075 ml 1550 ml 1120 ml 815 ml Balance -955 ml -1055 ml -383 ml -464 ml Intake Oral 120 ml 0 ml 240 ml 300 ml IV Total 495 ml 497 ml 51 ml Output Urine Total 1075 ml 1550 ml 1120 ml 815 ml # Bowel Movements 0 0 0 Physical Exam GENERAL: Obese male in ICU, no distress SKIN: Warm and dry. HEAD: Normocephalic. EYES: No scleral icterus. No injection or drainage. NECK: Supple, trachea midline. No JVD or lymphadenopathy. CARDIOVASCULAR: Regular rate and rhythm without murmurs, gallops, or rubs. Left chest dressing removed. steri strips intact, no bleeding, swelling or drainage. RESPIRATORY: Breath sounds equal bilaterally. No accessory muscle use. nasal cannula GASTROINTESTINAL: Abdomen soft, non-tender, nondistended. MUSCULOSKELETAL: No cyanosis, bilateral pedal edema BACK: Nontender without obvious deformity. No CVA tenderness. Laboratory Laboratory Tests Test 02/17/17 03:08 White Blood Count 7.4 TH/MM3 Red Blood Count 3.31 MIL/MM3 Hemoglobin 11.0 GM/DL Hematocrit 32.6 % Mean Corpuscular Volume 98.4 FL Mean Corpuscular Hemoglobin 33.3 PG Mean Corpuscular Hemoglobin 33.9 % Concent Red Cell Distribution Width 14.6 % Platelet Count 181 TH/MM3 Mean Platelet Volume 9.4 FL Neutrophils (%) (Auto) 57.2 % Lymphocytes (%) (Auto) 30.3 % Monocytes (%) (Auto) 10.8 % Eosinophils (%) (Auto) 1.4 % Basophils (%) (Auto) 0.3 % Neutrophils # (Auto) 4.2 TH/MM3 Lymphocytes # (Auto) 2.2 TH/MM3 Monocytes # (Auto) 0.8 TH/MM3 Eosinophils # (Auto) 0.1 TH/MM3 Basophils # (Auto) 0.0 TH/MM3 CBC Comment DIFF FINAL Differential Comment Sodium Level 141 MEQ/L Potassium Level 3.7 MEQ/L Chloride Level 105 MEQ/L Carbon Dioxide Level 29.5 MEQ/L Anion Gap 7 MEQ/L Blood Urea Nitrogen 18 MG/DL Creatinine 0.81 MG/DL Estimat Glomerular Filtration 91 ML/MIN Rate Random Glucose 88 MG/DL Calcium Level 8.6 MG/DL Imaging Last 72 hours Impressions Chest X-Ray 02/16/17 0000 Signed Impressions: Service Date/Time: , February 16, 2017 16:15 - CONCLUSION: 1. Status post placement of dual-lead pacemaker without evidence for pneumothorax. Manjinder Hopkins MD Assessment and Plan Assessment and Plan ASSESSMENT Traumatic near syncopal fall resulting in right superior pubic ramus fracture. Hypotensive and bradycardiac on admission. 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 s/p [facility] PPM 02/16/2017. No PTX on followup CXR. History of atrial flutter on Xarelto prior to admission Hyperlipidemia PLAN: Device interrogated by [facility] rep this morning. Patient may resume Xarelto on Monday with evening meal. Discussed importance of keeping steri strip clear and dry. Dr Lanza with see the patient in the office for device check and office visit in 1-2 weeks. The patient is clear for discharge from cardiac standpoint. Assessment and plan discussed with Viktoria Brown Feb 17, 2017 09:49
[2017-02-17] MEDS ORDERED: BISA10R RECTAL (11:03)
[2017-02-17] MEDS ORDERED: CALC250 PO (11:03)
[2017-02-17] MEDS ORDERED: LEVO.125 PO (11:03)
[2017-02-17] MEDS ORDERED: ACET1TAB86 PO (11:03)
[2017-02-17] MEDS ORDERED: PANT40P PO (11:03)
[2017-02-17] MEDS ORDERED: PRAV20TA PO (11:03)
[2017-02-17] MEDS ORDERED: ALBU0.08 INH (11:03)
[2017-02-17] MEDS ORDERED: SENN1TAB PO (11:03)
[2017-02-17] MEDS ORDERED: NEUR400C PO (11:03)
[2017-02-17] MEDS ORDERED: THERTAB15 PO (11:03)
--- NOTE | 2017-02-17 11:04 | HHI.DCPOC ---
Discharge Care Plan Diagnosis: (1) Hypotension (2) Syncope and collapse Your Health Problems Are: Difficulty with ADL Goals to Promote Your Health * To prevent worsening of your condition and complications * To maintain your health at the optimal level Directions to Meet Your Goals Take your medications as prescribed Follow your dietary instruction Follow activity as directed Keep your appointments as scheduled Take your immunizations and boosters as scheduled If your symptoms worsen call your PCP, if no PCP go to Urgent Care Center or Emergency Room Smoking is Dangerous to Your Health. Avoid second hand smoke Call the 24-hour hour crisis hotline for domestic abuse at Cassandra Gaxiola Feb 17, 2017 11:04
--- NOTE | 2017-02-17 11:12 | HHI.DS ---
Discharge Summary Admission Date Feb 10, 2017 at 12:20 Discharge Date: Feb 17, 2017 Admitting Diagnosis Syncope, Hypotension, Bradycardia, Anemia (1) Closed fracture of pubic ramus Diagnosis: Principal (2) Headache Diagnosis: Principal (3) [place] (hard of hearing) Diagnosis: Principal (4) Congestive heart failure of unknown etiology Diagnosis: Principal (5) Dyslipidemia Diagnosis: Principal (6) Atrial fibrillation Diagnosis: Principal (7) Bradycardia by electrocardiogram Diagnosis: Principal (8) Obstructive sleep apnea Diagnosis: Principal (9) Chronic anticoagulation Diagnosis: Principal (10) Erectile dysfunction Diagnosis: Principal (11) Hypothyroidism Diagnosis: Principal (12) Normocytic anemia Diagnosis: Principal (13) Thrombocytopenia Diagnosis: Principal (14) Hypotension Diagnosis: Principal (15) Osteoarthritis Diagnosis: Principal (16) History of hypertension Diagnosis: Principal (17) Neuropathy Diagnosis: Principal (18) Alcohol use Diagnosis: Principal (19) weight loss drug use Diagnosis: Principal (20) Hypernatremia Procedures Pacemaker planned for today Brief History This is an 81-year-old male. Date of admission 02/10/2017. Past medical history includes atrial fibrillation, Adipex use up until October 2 years , weight loss medications using 2011 resulting in atrial fibrillation, chronic diastolic heart failure, hard of hearing, hypertension, dyslipidemia, obstructive sleep apnea requiring CPAP, chronic Xarelto use, ED, hypothyroidism , GERD, osteoarthritis. At the scene, EMS notes that on scene his heart rate was between 35 and 55. Slow A. fib was observed on 12-lead EKG. Initial blood pressure was low approximately 80/50. CBC/BMP: 02/17/17 0308 02/17/17 0308 Significant Findings Laboratory Tests Test 02/15/17 02/16/17 02/17/17 06:00 03:40 03:08 Prothrombin Time 11.7 SEC (9.8-11.6) Activated Partial 50.9 SEC Thromboplast Time (24.3-30.1) Red Blood Count 3.26 MIL/MM3 3.31 MIL/MM3 (4.50-5.90) (4.50-5.90) Hemoglobin 10.8 GM/DL 11.0 GM/DL (13.0-17.0) (13.0-17.0) Hematocrit 32.3 % 32.6 % (39.0-51.0) (39.0-51.0) Monocytes (%) (Auto) 11.8 % 10.8 % (0.0-8.0) (0.0-8.0) Estimat Glomerular Filtration 82 ML/MIN (>89) Rate PE at Discharge GENERAL: Alert and oriented SKIN: Warm and dry. HEAD: Normocephalic. EYES: No scleral icterus. No injection or drainage. NECK: Supple, trachea midline. No JVD or lymphadenopathy. CARDIOVASCULAR: Regular rate and rhythm without murmurs, gallops, or rubs. RESPIRATORY: Breath sounds equal bilaterally. No accessory muscle use. GASTROINTESTINAL: Abdomen soft, non-tender, nondistended. MUSCULOSKELETAL: No cyanosis, or edema. BACK: Nontender without obvious deformity. No CVA tenderness. Hospital Course This is an 81-year-old male. Date of admission 02/10/2017. Past medical history includes atrial fibrillation, Adipex use up until October 2 years , weight loss medications using 2012 resulting in atrial fibrillation, chronic diastolic heart failure, hard of hearing, hypertension, dyslipidemia, obstructive sleep apnea requiring CPAP, chronic Xarelto use, ED, hypothyroidism , GERD, osteoarthritis. At the scene, EMS notes that on scene his heart rate was between 35 and 55. Slow A. fib was observed on 12-lead EKG. Initial blood pressure was low approximately 80/50 and after 2 L normal saline increased 106/ 80. Patient was on dopamine initially which was discontinued. Patient had pacemaker placed in left chest wall yesterday which he tolerated well. Drg on. Has been cleared for discharge per cardiology. Patient will need to have rehab secondary to increased risk for falls and debility. Plan is for discharge to [facility] awaiting acceptance. Pt Condition on Discharge: Good Discharge Disposition: Rehab Inpatient Discharge Instructions DIET: Follow Instructions for: Heart Healthy Diet Activities you can perform: Regular-No Restrictions Follow up Referrals: Cardiology PCP Follow-up New Medications: Acetaminophen (Eq Acetaminophen) 325 Mg Tab 650 MG PO Q6H PRN FOR FEVER >101F #60 TAB Albuterol Neb (Albuterol Neb) 2.5 Mg/3 Ml Neb 2.5 MG INH Q2HR NEB PRN SOB/WHEEZING #30 NEBULE Bisacodyl Supp (Bisac-Evac Supp) 10 Mg Supp 10 MG RECTAL DAILY PRN SEVERE CONSITIPATION #10 SUPP Calcium/Vitamin D (Oyster Shell 250 mg + Vit D Tb) 250 Mg Calcium (625 Mg)-125 Unit Tablet 250 MG PO Q12HR Electrolyte Replacement #60 BOTTLE Gabapentin (Neurontin) 400 Mg Cap 400 MG PO HS Pain Management #30 CAP Levothyroxine (Synthroid) 125 Mcg Tab 125 MCG PO DAILY@06 Thyroid #30 TAB Multiple Vitamin (Thera/Beta-Carotene) 1 Tab Tab 1 TAB PO DAILY Electrolyte Replacement #30 TAB Pantoprazole Inj (Protonix Inj) 40 Mg Inj 40 MG PO DAILY Reflux #30 INJECTION Pravastatin (Pravachol) 20 Mg Tab 20 MG PO DAILY Cholesterol Management #30 TAB Sennosides-Docusate Sodium (Senna Plus 8.6-50 mg) 1 Tab Tab 2 TAB PO DAILY Constipation #30 TAB Discontinued Medications: Celecoxib (Celebrex) 200 Mg Cap 200 MG PO BID Pain Management Ref 0 CAP Gabapentin (Gabapentin) 400 Mg Cap 400 CAP PO HS #30 Ref 0 CAP Levothyroxine (Levothyroxine) 150 Mcg Tab 150 MCG PO DAILY Thyroid #30 Ref 0 TAB Multiple Vitamin (Multi Vitamin) 1 Tab Tab 1 TAB PO DAILY TAB [place]-3 Fatty Acids (Fish Oil) Unknown Strength Cap Unknown Dose Omeprazole (Omeprazole) 20 Mg Cap Oxycodone-Acetaminophen (Percocet) 10-325 mg Tab 1 TAB PO Q4H PRN PAIN Ref 0 TAB Rivaroxaban (Xarelto) 20 Mg Tab 20 MG PO DAILY Blood Clot Prevention Ref 0 TAB Simvastatin (Simvastatin) 10 Mg Tab 10 MG PO DAILY Cholesterol Management #30 Ref 0 TAB Tadalafil (Cialis) 10 Mg Tab 10 MG PO DAILY Do not exceed 1 dose/day. PRN Erectile Dysfunction Ref 0 TAB Tramadol (Ultram) 50 Mg Tab 50 MG PO Q4H PRN PAIN Ref 0 TAB Vitamin E (E-400) 400 Unit Cap Additional Information Xarelto 10 mg PO to be started on Monday Cassandra Gaxiola Feb 17, 2017 11:12
[2017-02-17] MEDS: SODIUM CHLORIDE 0.9% FLUSH 10 ML FLUSH IVF SCH (11:42)
[2017-02-17] MEDS: ACETAMINOPHEN/HYDROcodone 325 MG/5 MG TAB PO PRN ×2 (12:51→16:11)
--- NOTE | 2017-02-17 13:35 | EKG ---
Date Performed: 02/16/2017 Time Performed: 19:14:07 PTAGE: 81 years EKG: Sinus rhythm WITH FIRST DEGREE AV BLOCK Nonspecific T-wave changes ABNORMAL ECG PREVIOUS TRACING : 02/11/2017 16.03 No change compared to the prior study. DOCTOR: Damon Huston Interpretating Date/Time 02/17/2017 13:32:05
== END 2017-02-17 16:25 | DRG 243 ==
LOC: NEPC 10:00 → NEDA 12:20 → HIME 17:28
PROVIDERS: ADMIT Internal Medicine Critical Care Medicine; ATTEND Internal Medicine Critical Care Medicine
PROC: 05HM33Z Insertion of Infusion Device into Right Internal Jugular Vein, Percutaneous Approach (ICD-10-PCS; principal; 2017-02-10)
PROC: 0JH606Z Insertion of Pacemaker, Dual Chamber into Chest Subcutaneous Tissue and Fascia, Open Approach (ICD-10-PCS; 2017-02-16)
PROC: 02HK3JZ Insertion of Pacemaker Lead into Right Ventricle, Percutaneous Approach (ICD-10-PCS; 2017-02-16)
PROC: 02H63JZ Insertion of Pacemaker Lead into Right Atrium, Percutaneous Approach (ICD-10-PCS; 2017-02-16)
DX: R00.1 Bradycardia, unspecified (principal); S32.591A Other specified fracture of right pubis, initial encounter for closed fracture; E87.0 Hyperosmolality and hypernatremia; D69.6 Thrombocytopenia, unspecified; I11.0 Hypertensive heart disease with heart failure; I50.32 Chronic diastolic (congestive) heart failure; I08.1 Rheumatic disorders of both mitral and tricuspid valves; I45.89 Other specified conduction disorders; I48.0 Paroxysmal atrial fibrillation; G62.9 Polyneuropathy, unspecified; E05.90 Thyrotoxicosis, unspecified without thyrotoxic crisis or storm; I44.30 Unspecified atrioventricular block; E03.9 Hypothyroidism, unspecified; E78.5 Hyperlipidemia, unspecified; D64.9 Anemia, unspecified; H91.93 Unspecified hearing loss, bilateral; K21.9 Gastro-esophageal reflux disease without esophagitis; R19.5 Other fecal abnormalities; Z96.611 Presence of right artificial shoulder joint; Z96.643 Presence of artificial hip joint, bilateral; Z96.653 Presence of artificial knee joint, bilateral; Z96.612 Presence of left artificial shoulder joint; E78.00 Pure hypercholesterolemia, unspecified; R51 Headache; G47.33 Obstructive sleep apnea (adult) (pediatric); Z79.01 Long term (current) use of anticoagulants; N52.9 Male erectile dysfunction, unspecified; W19.XXXA Unspecified fall, initial encounter; Z87.891 Personal history of nicotine dependence; M19.90 Unspecified osteoarthritis, unspecified site; E66.9 Obesity, unspecified
CPT/HCPCS: 33208; 36556; 70450; 71010; 73502; 73552; 76937; 80048; 80053; 80307; 81001; 82533; 82550; 82552; 82948; 83605; 83735; 83880; 84100; 84439; 84443; 84481; 84484; 85025; 85027; 85610; 85730; 86850; 86900; 86901; 87641; 93005; 94150; 96374; C1779; C1785; C9113; J0610; J0690; J1265; J1644; J2270; J2370; J2405; J3010; J3370; J3411; J3475; J7040; J7050

== ENCOUNTER → 2017-07-25 | Outpatient (CLI) | payer MEDICARE, OTHER ==
[~2017-07-25] MED LIST changes: +ACET325T15 PO; +ALBU0.08 INH; +BISA10R RECTAL; +CALC250 PO; -CELE200C PO; -CIAL10TA PO; -FISH500C; -GABA400C5 PO; +LEVO.125 PO; -LEVO150T7 PO; -MULT-135 PO; +NEUR400C PO; -OMEP20CA2; +PANT40P PO; -PERC10TA27 PO; +PRAV20TA PO; +SENN1TAB PO; -SIMV10TA PO; +THERTAB15 PO; -ULTR50TA5 PO; -VITA400C5; -XARE20TA PO
[2017-07-25 13:51] LABS: BASOPHIL % 0.3 % (0.0-2.0); EOSINOPHIL % 0.9 % (0.0-4.0); HEMATOCRIT 36.6 % (39.0-51.0); HEMO FLAGS DIFF FINAL; LYMPH % 34.3 % (9.0-44.0); LYMPHOCYTE # 1.9 TH/MM3 (1.0-4.8); MEAN CELL VOLUME 102.3 FL (80.0-100.0); MEAN CORPUSCULAR HEMOGLOBIN 35.3 PG (27.0-34.0); MEAN CORPUSCULAR HGB CONC 34.5 % (32.0-36.0); MONO % 10.1 % (0.0-8.0); NEUT % 54.4 % (16.0-70.0); PLATELET COUNT 157 TH/MM3 (150-450); RED BLOOD COUNT 3.58 MIL/MM3 (4.50-5.90); RED CELL DISTRIBUTION WIDTH 13.7 % (11.6-17.2); WHITE BLOOD COUNT 5.5 TH/MM3 (4.0-11.0)
[2017-07-25 14:06] LABS: HEMOGLOBIN A1a 1.6 %; HEMOGLOBIN A1b 1.8 %; HEMOGLOBIN Ao 84.5 %; HEMOGLOBIN LA1C 2.1 %; HEMOGLOBIN P3 3.9 %
[2017-07-25 14:10] LABS: ANION GAP 7 MEQ/L (5-15); AST (GOT) 24 U/L (15-37); BICARBONATE 26.4 MEQ/L (21.0-32.0); BLOOD UREA NITROGEN 22 MG/DL (7-18); CHLORIDE 108 MEQ/L (98-107); GLOMERULAR FILTRATION RATE 66 ML/MIN (>89); GLUCOSE,FASTING 91 MG/DL (74-99); POTASSIUM 4.4 MEQ/L (3.5-5.1); SODIUM (NA) 141 MEQ/L (136-145)
[2017-07-25 14:11] LABS: ALT (GPT) 22 U/L (12-78); THYROXINE (T4) 5.5 MCG/DL (4.5-12.1)
[2017-07-25 14:20] LABS: ALKALINE PHOSPHATASE 79 U/L (45-117); HDL CHOLESTEROL 57.2 MG/DL (40.0-60.0); LDL CHOLESTEROL 54 MG/DL (0-99); TOTAL BILIRUBIN ADULT 0.5 MG/DL (0.2-1.0)
== END ==
LOC: PLAB 11:03
PROVIDERS: ATTEND Family Medicine
DX: E78.2 Mixed hyperlipidemia (principal); I10 Essential (primary) hypertension; E03.8 Other specified hypothyroidism; R53.83 Other fatigue; E55.9 Vitamin D deficiency, unspecified; Z79.899 Other long term (current) drug therapy; Z12.5 Encounter for screening for malignant neoplasm of prostate
CPT/HCPCS: 36415; 80053; 80061; 82306; 83036; 84403; 84410; 84436; 84443; 84480; 85025; G0103

== ENCOUNTER → 2017-08-31 | Outpatient (CLI) | payer MEDICARE, OTHER ==
[2017-08-31 13:43] LABS: BASOPHIL % 0.7 % (0.0-2.0); HEMOGLOBIN 12.1 GM/DL (13.0-17.0); LYMPH % 36.9 % (9.0-44.0); LYMPHOCYTE # 1.5 TH/MM3 (1.0-4.8); MEAN CELL VOLUME 103.2 FL (80.0-100.0); MEAN CORPUSCULAR HEMOGLOBIN 34.8 PG (27.0-34.0); MEAN CORPUSCULAR HGB CONC 33.7 % (32.0-36.0); MEAN PLATELET VOLUME 9.1 FL (7.0-11.0); MONO % 12.9 % (0.0-8.0); MONOCYTE # 0.5 TH/MM3 (0-0.9); NEUT % 48.5 % (16.0-70.0); PLATELET COUNT 171 TH/MM3 (150-450); RED BLOOD COUNT 3.49 MIL/MM3 (4.50-5.90); RED CELL DISTRIBUTION WIDTH 13.5 % (11.6-17.2); WHITE BLOOD COUNT 4.2 TH/MM3 (4.0-11.0)
[2017-08-31 13:48] LABS: BICARBONATE 29.3 MEQ/L (21.0-32.0); CALCIUM 8.9 MG/DL (8.5-10.1); CREATININE 0.98 MG/DL (0.60-1.30)
[2017-08-31 13:56] LABS: FREE T3 4.86 PG/ML (2.18-3.98)
[2017-09-02 14:07] LABS: FREE TESTOSTERONE 3.59 ng/dL (2.88-10.5)
== END ==
LOC: PLAB 10:42
PROVIDERS: ATTEND Family Medicine
DX: E78.2 Mixed hyperlipidemia (principal); E03.8 Other specified hypothyroidism; R53.83 Other fatigue; I10 Essential (primary) hypertension; E55.9 Vitamin D deficiency, unspecified; Z79.899 Other long term (current) drug therapy; Z12.5 Encounter for screening for malignant neoplasm of prostate
CPT/HCPCS: 36415; 80048; 82306; 84403; 84410; 84481; 85025; G0103

== ENCOUNTER → 2017-09-22 | Outpatient (CLI) | payer MEDICARE, OTHER ==
[2017-09-22 13:31] LABS: AUTOMATED NEUTROPHIL # 2.5 TH/MM3 (1.8-7.7); BASOPHIL % 0.5 % (0.0-2.0); EOSINOPHIL % 0.9 % (0.0-4.0); HEMOGLOBIN 12.6 GM/DL (13.0-17.0); LYMPH % 38.3 % (9.0-44.0); MEAN CORPUSCULAR HEMOGLOBIN 34.6 PG (27.0-34.0); MEAN PLATELET VOLUME 9.6 FL (7.0-11.0); MONO % 12.5 % (0.0-8.0); MONOCYTE # 0.7 TH/MM3 (0-0.9); NEUT % 47.8 % (16.0-70.0); PLATELET COUNT 165 TH/MM3 (150-450); RED BLOOD COUNT 3.62 MIL/MM3 (4.50-5.90); RED CELL DISTRIBUTION WIDTH 12.8 % (11.6-17.2); WHITE BLOOD COUNT 5.3 TH/MM3 (4.0-11.0)
[2017-09-22 13:48] LABS: BICARBONATE 27.4 MEQ/L (21.0-32.0); CALCIUM 9.4 MG/DL (8.5-10.1); CREATININE 1.54 MG/DL (0.60-1.30)
[2017-09-22 13:57] LABS: FREE T3 4.7 PG/ML (2.18-3.98)
[2017-09-25 22:20] LABS: FREE TESTOSTERONE 3.63 ng/dL (2.88-10.5)
== END ==
LOC: PLAB 09:37
PROVIDERS: ATTEND Family Medicine
DX: E78.2 Mixed hyperlipidemia (principal); I10 Essential (primary) hypertension; E03.8 Other specified hypothyroidism; R53.83 Other fatigue; E55.9 Vitamin D deficiency, unspecified; Z79.899 Other long term (current) drug therapy; Z12.5 Encounter for screening for malignant neoplasm of prostate
CPT/HCPCS: 36415; 80048; 82306; 84403; 84410; 84481; 85025; G0103

== ENCOUNTER → 2017-10-24 | Outpatient (CLI) | payer MEDICARE, OTHER ==
[2017-10-24 13:28] LABS: BASOPHIL % 0.3 % (0.0-2.0); EOSINOPHIL % 0.9 % (0.0-4.0); HEMATOCRIT 35.8 % (39.0-51.0); HEMOGLOBIN 12.8 GM/DL (13.0-17.0); LYMPH % 41.4 % (9.0-44.0); LYMPHOCYTE # 1.8 TH/MM3 (1.0-4.8); MEAN CELL VOLUME 101.2 FL (80.0-100.0); MEAN CORPUSCULAR HEMOGLOBIN 36.1 PG (27.0-34.0); MEAN CORPUSCULAR HGB CONC 35.7 % (32.0-36.0); MEAN PLATELET VOLUME 8.8 FL (7.0-11.0); MONO % 11.8 % (0.0-8.0); MONOCYTE # 0.5 TH/MM3 (0-0.9); NEUT % 45.6 % (16.0-70.0); PLATELET COUNT 163 TH/MM3 (150-450); RED BLOOD COUNT 3.54 MIL/MM3 (4.50-5.90); RED CELL DISTRIBUTION WIDTH 12.9 % (11.6-17.2); WHITE BLOOD COUNT 4.3 TH/MM3 (4.0-11.0)
[2017-10-24 13:35] LABS: CALCIUM 8.6 MG/DL (8.5-10.1); CREATININE 1.11 MG/DL (0.60-1.30)
[2017-10-24 13:47] LABS: CHOLESTEROL/ HDL RATIO 2.55 RATIO; FREE T3 3.26 PG/ML (2.18-3.98); HDL CHOLESTEROL 48.5 MG/DL (40.0-60.0)
== END ==
LOC: PLAB 10:35
PROVIDERS: ATTEND Family Medicine
DX: I10 Essential (primary) hypertension (principal); E78.2 Mixed hyperlipidemia; E03.8 Other specified hypothyroidism; R53.83 Other fatigue; E55.9 Vitamin D deficiency, unspecified; Z79.899 Other long term (current) drug therapy; Z12.5 Encounter for screening for malignant neoplasm of prostate
CPT/HCPCS: 36415; 80048; 80061; 82306; 83789; 84403; 84410; 84481; 85025; G0103

== ENCOUNTER → 2017-11-28 | Outpatient (CLI) | payer MEDICARE, OTHER ==
[2017-11-30 13:59] LABS: FREE TESTOSTERONE 4.59 ng/dL (2.88-10.5)
== END ==
LOC: PLAB 07:43
PROVIDERS: ATTEND Family Medicine
DX: E29.1 Testicular hypofunction (principal)
CPT/HCPCS: 36415; 84403; 84410